=== PATIENT | male | born 1950 | race Caucasian/White ===

== ENCOUNTER → 2016-09-05 | Outpatient (CLI) | payer MEDICARE, MEDICAID | END | disposition home or self-care (01) | LOC: GMAJ 17:44 | PROVIDERS: ATTEND Family Medicine | DX: L03.119 Cellulitis of unspecified part of limb (principal); L03.129 Acute lymphangitis of unspecified part of limb ==

== ENCOUNTER → 2016-09-20 | Outpatient (CLI) | payer MEDICARE, MEDICAID | END | disposition home or self-care (01) | LOC: BFHH 11:10 | PROVIDERS: ATTEND Family Medicine | DX: E11.65 Type 2 diabetes mellitus with hyperglycemia (principal) ==

== ENCOUNTER → 2016-10-13 | Outpatient (CLI) | payer MEDICARE, MEDICAID | LOC: BFHH 09:55 | PROVIDERS: ATTEND Family Medicine | DX: E11.621 Type 2 diabetes mellitus with foot ulcer (principal) ==

== ENCOUNTER → 2016-12-04 | Outpatient (CLI) | payer MEDICARE, MEDICAID | END | disposition home or self-care (01) | LOC: BFHH 09:56 | PROVIDERS: ATTEND Family Medicine | DX: E11.65 Type 2 diabetes mellitus with hyperglycemia (principal); E11.42 Type 2 diabetes mellitus with diabetic polyneuropathy; I10 Essential (primary) hypertension; L03.115 Cellulitis of right lower limb ==

== ENCOUNTER → 2017-01-10 | Outpatient (CLI) | payer MEDICARE, MEDICAID | END | disposition home or self-care (01) | LOC: BFHH 14:55 | PROVIDERS: ATTEND Family Medicine | DX: E11.65 Type 2 diabetes mellitus with hyperglycemia (principal); E11.621 Type 2 diabetes mellitus with foot ulcer; E11.42 Type 2 diabetes mellitus with diabetic polyneuropathy ==

== ENCOUNTER 2017-01-12 12:50 | Inpatient (IN) | payer MEDICARE, MEDICAID ==
[2017-01-12] MEDS ORDERED: ONDANSETRON INJ 4 MG/2 ML VIAL IV ONE (13:34)
[2017-01-12] MEDS ORDERED: SODIUM CHLORIDE 0.9% 1000ML 1,000 ML IVS ONE (13:34)
--- NOTE | 2017-01-12 13:44 | ED.PDOC ---
History of Present Illness - General Chief Complaint: Fever Stated Complaint: fever, weaknes w/falls, emesis x1 Time Seen by Provider: 01/12/17 12:53 Source: patient, RN notes reviewed, Vital Signs reviewed, family - sister, EMS Exam Limitations: no limitations - History of Present Illness Initial Comments: Patient comes in with c/o weakness, nausea, vomiting and fever. He reports that he has been feeling weak for about a month but it is getting progressively worse. This morning his legs got really weak and he fell. He denies any injury from the fall. He was in [facility] ~1month ago with the same symptoms and a severe infection of his R foot. 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 He is still seeing wound care. Yesterday when he saw the wound care doctor he was restarted on antibiotics, patient does not know which one. Timing/Duration: constant - 1 month, getting worse Severity: moderate Improving Factors: nothing Worsening Factors: other - getting up and about Associated Symptoms: fever/chills, malaise, nausea/vomiting, weakness Allergies/Adverse Reactions: Allergies NO KNOWN ALLERGY Allergy (Verified 11/05/14 18:04) Home Medications: Ambulatory Orders Amlodipine Besylate [Norvasc] 5 mg PO DAILY 10/29/14 Atenolol [Tenormin] 100 mg PO BID 10/29/14 Atorvastatin Calcium [Lipitor] 80 mg PO BEDTIME 10/29/14 Insulin Aspart [Novolog Flexpen] 10 unit SC TID 10/29/14 Insulin Glargine [Lantus Solostar] 30 unit SC DAILY 10/29/14 Potassium Chloride [Micro-K] 10 meq PO BID 10/29/14 Pregabalin [Lyrica] 100 mg PO BID 10/29/14 Furosemide 40 mg PO BID 01/12/17 Losartan Potassium 100 mg PO DAILY 01/12/17 Review of Systems - Review of Systems Constitutional: States: chills, fever, malaise, weakness EENTM: States: no symptoms reported Respiratory: States: no symptoms reported Cardiology: States: no symptoms reported Gastrointestinal/Abdominal: States: nausea, vomiting. Denies: abdominal pain, constipation, diarrhea Genitourinary: States: frequency - due to being on Lasix Musculoskeletal: States: no symptoms reported Skin: States: no symptoms reported Neurological: Denies: headache, numbness, paresthesia, tingling, tremors, weakness Endocrine: States: no symptoms reported All other Systems: No Change from Baseline Past Medical History (General) - Patient Medical History Hx Seizures: No Hx Stroke: No Hx Asthma: No Hx of COPD: No Hx Cardiac Disorders: No Hx Congestive Heart Failure: No Hx Pacemaker: No Hx Hypertension: Yes Hx Diabetes: Yes Hx MRSA: No - Social History Hx Tobacco Use: No Hx Alcohol Use: No Hx Substance Use: No Hx Physical Abuse: No Hx Emotional Abuse: No Family Medical History - Family History Mother Name: Fanny Centeno Living Status: Age at (years of age): 65 Cause of : Cancer Hx Family Asthma: No Hx Family Congestive Heart Failure: No Hx Family Hypertension: Yes Hx Family Stroke: No Hx Cardiac Disease: No Hx Family Diabetes: No Hx Family Cancer: Yes Physical Exam - Physical Exam General Appearance: Alert, Ill Appearing, Well Developed, Well Groomed, Well Nourished Ears, Nose, Throat: other - dry mucous membranes Neck: supple, normal inspection Respiratory: chest non-tender, lungs clear, normal breath sounds, no respiratory distress, no accessory muscle use Cardiovascular/Chest: regular rate, rhythm, no edema, no gallop, no murmur Gastrointestinal/Abdominal: normal bowel sounds, non tender, soft Extremity: other - R foot: erythematous, warm and tender. Neurologic: no motor/sensory deficits, alert, normal mood/affect, oriented x 3, other - Unsteady on his feet Skin Exam: normal color, warm/dry Comments: Vital Signs 01/12/17 12:50 Temperature 102.3 F H Pulse Rate [ 94 H left brachial] Respiratory 16 Rate O2 Sat by Pulse 92 L Oximetry Progress - Progress Progress: 01/12/17 14:[address] Rojo. Will admit for IV antibiotics. - Results/Orders Results/Orders: Laboratory Tests 01/12/17 01/12/17 13:40 13:40 WBC 5.9 RBC 4.12 L Hgb 12.2 L Hct 35.8 L MCV 87.1 MCH 29.6 MCHC 33.9 RDW 14.7 H Plt Count 234 MPV 7.6 Absolute Neuts (auto) 4.00 Absolute Lymphs (auto) 1.30 Absolute Monos (auto) 0.40 Absolute Eos (auto) 0.00 Absolute Basos (auto) 0.10 Neutrophils % 68.8 Lymphocytes % 22.6 Monocytes % 7.5 Eosinophils % 0.2 L Basophils % 0.9 Sodium 139 Potassium 4.2 Chloride 100 L Carbon Dioxide 29 Anion Gap 14.2 BUN 18 Creatinine 1.33 H BUN/Creatinine Ratio 13.5 Random Glucose 314 H Serum Osmolality 291.4 Calcium 8.5 Total Bilirubin 0.5 AST 22 ALT 25 Alkaline Phosphatase 67 Serum Total Protein 7.5 Albumin 3.2 Globulin 4.3 H Albumin/Globulin Ratio 0.7 L - EKG/XRAY/CT XRAY: chest - cardiomegaly, no infiltrate Departure - Departure Clinical Impression: Cellulitis of foot, right Fever Qualifiers: Fever type: other Qualified Code(s): R50.81 - Fever presenting with conditions classified elsewhere Disposition: Admit Patient Condition: Fair Home Medications: Ambulatory Orders Amlodipine Besylate [Norvasc] 5 mg PO DAILY 10/29/14 Atenolol [Tenormin] 100 mg PO BID 10/29/14 Atorvastatin Calcium [Lipitor] 80 mg PO BEDTIME 10/29/14 Insulin Aspart [Novolog Flexpen] 10 unit SC TID 10/29/14 Insulin Glargine [Lantus Solostar] 30 unit SC DAILY 10/29/14 Potassium Chloride [Micro-K] 10 meq PO BID 10/29/14 Pregabalin [Lyrica] 100 mg PO BID 10/29/14 Furosemide 40 mg PO BID 01/12/17 Losartan Potassium 100 mg PO DAILY 01/12/17 Decision To Admit - Decistion To Admit Decision to Admit Reason: Admit from ER Decision to Admit Date: 01/12/17 Decision to Admit Time: 14:35
[2017-01-12] MEDS ORDERED: ACETAMINOPHEN 500 MG TAB PO ONE (13:48)
--- NOTE | 2017-01-12 14:57 | RAD ---
EXAM DESCRIPTION: Chest,2 Views CLINICAL HISTORY: Fever/hypoxia COMPARISON: February 18, 2015 TECHNIQUE: PA/lateral Findings/impression: Cardiac silhouette shows cardiomegaly with mild central pulmonary vascular congestion. Calcific atherosclerosis noted of the aortic arch. Lungs are clear without focal consolidative infiltrates. No significant pleural effusion. No pneumothorax. Multilevel degenerative disc disease and marginal osteophytes of the thoracic spine. Electronically signed by: Phillip Bruce MD 01/12/2017 2:55 PM CDT
--- NOTE | 2017-01-12 15:28 | HP ---
HISTORY OF PRESENT ILLNESS: This 67 year-old white male is admitted to the hospital via the Emergency Room after being brought from home. He approximately got up early this morning and fell on 2 different occasions and could not get up. He finally was able to get close enough to support himself on a chair when some family members started to come over for coffee and found him. He was very sore from his attempts to get up from the floor. He lives at home alone. In the Emergency Room, he was very weak with associated nausea and vomiting. He has not eaten anything all day and did not take his insulin or other medicines today as well. His temperature was 103.2 at one time. He states that he has been falling because of disequilibrium problems and associated weakness. He has had a history of right third toe amputation and now presents with a swollen right foot with a fairly deep ulceration on the ball of the foot with tracking deep into the foot noted on culture swab. He has been followed closely in the [facility] by Dr. Batres. In the Emergency Room, he was noted to have oxygen desaturation while sleeping into the mid 80s. He apparently was in [facility] about 6 weeks ago because of the ulceration on his foot with associated infectious presentation. He is admitted to the hospital now to continue the evaluation of a possible source of the fever as well as to give some IV hydration, control the diabetes and work to prevent further worsening which would also include the development of diabetic ketoacidosis. Special attention to his frequent falls. PAST MEDICAL HISTORY: 1. Hypertension. 2. Diabetes mellitus on insulin for the last 15 years. PAST SURGICAL HISTORY: 1. Foot ulceration surgeries in the past. CURRENT MEDICATIONS: Please refer to medicines list that the nurses have verified being taken as his home medication. He also takes Lantus insulin 50 units every morning and he takes NovoLog around 20 units before each meal. Today, he has not taken either, nor has he eaten or drank much. ALLERGIES: NONE KNOWN. FAMILY HISTORY: Positive for diabetes, cancer and coronary artery disease. 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 He has never smoked. REVIEW OF SYSTEMS: His weight seems to be going up and he has had some low- grade fever and chills noted recently. HEENT: No hearing or vision disturbances. LUNGS: Occasional cough but no significant hemoptysis or shortness of breath, but he does get tired easily. CARDIOVASCULAR: No significant chest pains or palpitations. ABDOMEN: Some nausea and vomiting today with a loss of appetite. GENITOURINARY: No dysuria or burning on urination. EXTREMITIES: Right foot swollen with drainage, especially from the ulceration on the ball of his right foot. NEUROLOGIC: The patient is quite weak having difficulty getting up and getting around successfully. Will have Physical Therapy assist in evaluating the safety of his getting up. PHYSICAL EXAMINATION: VITAL SIGNS: Temperature was 102.3 when he came into the Emergency Room and is down to 99.6 subsequently. Pulse 75, blood pressure 109/65, respirations 20, pulse oximetry 95% on 1 liter. Weight 115.9 kilos. GENERAL: The patient is fairly alert and communicative. He is very weak and complains of difficulty ambulating, and history of recent falls. HEENT: Unremarkable. NECK: Supple. CHEST: Lungs have diminished breath sounds with no significant wheezing. CARDIOVASCULAR: Heart tones are fairly regular with a grade 2/6 systolic murmur over the base of the heart. No gallops noted. ABDOMEN: Obese, soft. Some increased percussion upon tympani exam. EXTREMITIES: Right foot is swollen with some erythema especially at the base of some of the toes. He has lost his third toe and a good portion of his second and big toe by amputations. The ulceration on the bottom of his foot in the region of the ball of the foot does have a fairly deep connection into the foot itself, but otherwise is fairly clean and is showing some granulation tissue formation slowly forming. NEUROLOGIC: The patient is quite weak. We did not get him up to walk him until we are able to get him a little more stable with some more IV hydration and improved diabetic and nutritional status. Reevaluate in the morning. LABORATORY: White count of 5,900, hemoglobin 12.2, platelets 234, neutrophils 69%. Chemistry shows sodium 139, potassium 4.2, CO2 of 29, BUN 18, creatinine 1.33, glucose 314 down to 291, calcium 8.5. Liver enzymes normal. C reactive protein pending. Albumin 3.2. Urinalysis showed proteinuria, glycosuria and some hematuria with 1+ bacteriuria, culture pending. Blood cultures, urine culture and wound culture pending. Chest x-ray does show an enlarged heart with mild central pulmonary vascular congestion. ASSESSMENT: 1. Acute febrile illness of undetermined etiology possibly from the foot itself versus atelectasis versus a viral illness. 2. Dehydration requiring IV supplementation. 3. Diabetes mellitus type 1 insulin dependent, poorly controlled having skipped his insulin today as well as his nutritional intake. 4. Transient hypoxia noted while asleep. 5. Right foot infected with deep ulceration on the ball of the foot being managed at the [facility] possibly contributing to the febrile state with ongoing treatment and support, and cultures pending. 6. Falls with the patient living at home alone which could be quite serious. PLAN: Continue with gentle fluid hydration, especially with his history of an enlarged heart, possibly early congestive heart failure. Await BNP. Will get adequate cultures and the consider a short course of fluoroquinolone parenterally. Await Flu A and B. Use local diluted Hibiclens to cleanse the right foot. Concentrate on proper nutrition with a select diet with the patient being edentulous at this time. Will decrease some of the Atenolol because of his blood pressure not being very high at this point and continue to observe closely. Reevaluate in the morning and continue with diabetes management and further followup regarding the ongoing fever. #[id number] MTDD
[2017-01-12] MEDS ORDERED: HYDROcodone 5MG/APAP 325MG 1 EA TAB PO PRN (19:37)
[2017-01-12] MEDS ORDERED: GLUCAGON INJ 1 MG VIAL SUBCU PRN (19:37)
[2017-01-12] MEDS ORDERED: DEXTROSE 50% 25 GM/50 ML SYG IV PRN (19:37)
[2017-01-12] MEDS ORDERED: ALUM & MAG HYDROX-SIMETHICONE 30 ML UD PO PRN (19:37)
[2017-01-12] MEDS ORDERED: SODIUM CHLORIDE 0.9% (FLUSH) 10 ML SYG IV PRN (19:37)
[2017-01-12] MEDS ORDERED: MAGNESIUM HYDROXIDE 30 ML UD PO PRN (19:37)
[2017-01-12] MEDS ORDERED: ONDANSETRON INJ 4 MG/2 ML VIAL IV PRN (19:37)
[2017-01-12] MEDS ORDERED: KCL 20 MEQ/NS 1,000 ML IVS PRN (19:47)
[2017-01-12] MEDS ORDERED: CHLORHEXIDINE GLUCONATE 4 % 15 ML UD TOP ONE (19:49)
--- NOTE | 2017-01-12 20:03 | PCM.CORE ---
Physician DVT/VTE - Nurse DVT Assessment & Total Each Risk Factor Represents 3 Points: Medical PT with Hx of AK, CHF, Severe infection/sepsis Each Risk Factor Represents 2 Points: Age 60-74 Each Risk Factor is 1 Point: Varicose Veins/Edema Legs, Obesity (BMI >25) DVT Assessment Score: 7 - 5 or more Very High Risk Treatments: Sequential Compression Device Pharmacological: Enoxaparin 40mg SQ Daily
[2017-01-12] MEDS ORDERED: levoFLOXacin 500MG IV 100 ML IVPB ONE (20:19)
[2017-01-12] MEDS: levoFLOXacin 500MG IV 500 MG in PREMIX BAG 1 BAG IVPB SCH (20:25)
[2017-01-12] MEDS: IV SET AND CAP CHANGE INJ INJ SCH (20:26)
[2017-01-12] MEDS ORDERED: ENOXAPARIN SODIUM 40 MG/0.4 ML SYG SUBCU SCH (20:30)
[2017-01-12] MEDS: LEVALBUTEROL NEBS 0.63 MG/3 ML VIAL INH SCH (20:40)
[2017-01-12] MEDS ORDERED: POTASSIUM CHLORIDE 10 MEQ TAB PO ONE (20:47)
[2017-01-12] MEDS ORDERED: PREGABALIN 100 MG CAP ONE (20:47)
[2017-01-12] MEDS: FUROSEMIDE 40 MG TAB PO SCH (20:54)
[2017-01-12] MEDS: ATENOLOL 25 MG TAB PO SCH (20:55)
[2017-01-12] MEDS: INSULIN LISPRO 100 UNITS/ML PEN SUBCU SCH (20:55)
[2017-01-12] MEDS ORDERED: PREGABALIN 100 MG PO SCH (21:00)
[2017-01-12] MEDS ORDERED: NON-FORMULARY MEDICATION 1 EA MIS (Potassium Chloride [Micro-K] 10 MEQ) PO SCH (21:00)
[2017-01-12] MEDS ORDERED: INSULIN DETEMIR 100 UNITS/ML PEN SUBCU ONE (23:12)
[2017-01-13] MEDS: ACETAMINOPHEN 325 MG TAB PO PRN ×2 (01:50→16:45)
[2017-01-13] MEDS: OMEPRAZOLE CAP 20 MG CAP PO SCH (05:30)
[2017-01-13] MEDS: INSULIN LISPRO 100 UNITS/ML PEN SUBCU SCH ×4 (07:48→21:45)
[2017-01-13] MEDS ORDERED: LEVALBUTEROL NEBS 0.63 MG/3 ML VIAL NEB ONE (08:16)
[2017-01-13] MEDS: LEVALBUTEROL NEBS 0.63 MG/3 ML VIAL INH SCH (08:24)
[2017-01-13] MEDS: ATENOLOL 25 MG TAB PO SCH ×2 (08:53→20:09)
[2017-01-13] MEDS: FUROSEMIDE 40 MG TAB PO SCH ×2 (08:53→20:09)
[2017-01-13] MEDS: LOSARTAN POTASSIUM 100 MG TAB PO SCH (08:53)
[2017-01-13] MEDS: PREGABALIN 100 MG CAP PO SCH ×2 (08:53→20:09)
[2017-01-13] MEDS: CHLORHEXIDINE GLUCONATE 4 % 15 ML UD TOP SCH ×2 (08:54→20:08)
[2017-01-13] MEDS: amLODIPine BESYLATE 5 MG TAB PO SCH (08:56)
[2017-01-13] MEDS ORDERED: INSULIN DETEMIR 100 UNITS/ML PEN SUBCU ONE ×2 (09:33→21:34)
--- NOTE | 2017-01-13 10:23 | PN ---
SUPERVISING PHYSICIAN: Haim Campos MD DATE: 01/13/17 SUBJECTIVE: The patient is lying in bed. He complains of his left leg hurting more than his right leg. He says he does not have any problems with the leg with the wound on it. He also complains of general fatigue and tiredness. He denies any chest pain, shortness of breath, nausea or vomiting or diarrhea. He did say he had had some problems with constipation but he had had a good bowel movement this morning. OBJECTIVE: VITAL SIGNS: T-max 24 hours is 100.4, pulse rate 87, blood pressure 137/74. Respiratory rate 19, 02 saturation 91% on nasal cannula. LUNGS: Clear to auscultation bilaterally. CARDIAC: Regular rate and rhythm. ABDOMEN: Rounded it is soft, bowel sounds are positive. EXTREMITIES: No cyanosis, clubbing, or edema. He does have a dressing to the right lower foot that is dry and intact. Bilateral pedal pulses are palpable at +1. NEUROLOGIC: He is awake, alert, and oriented x3. LABORATORY: Sodium 137, potassium 4, chloride 103, carbon dioxide 25, BUN 15, creatinine 1.33, calcium 8.1, BNP 198. Albumin 3, globulin 4.3. Hemoglobin A1C is 10.9. Hemoglobin 10.8, hematocrit of 36.5. Influenza A and B per PCR is negative. Cultures - wound, urine and blood are pending. All other labs and films have been reviewed via the EMR. ASSESSMENT: 1. Acute febrile illness of undetermined etiology most likely from cellulitis of the right foot. Also consider atelectasis versus a viral illness. 2. Dehydration requiring IV supplementation, improved. 3. Diabetes mellitus type 2 insulin dependent, poorly controlled with poor medical compliance with hemoglobin A1C of 10.9. 4. Transient hypoxia noted while asleep. 5. Infected right foot with a deep ulceration on the ball of the foot being managed by [facility]. 6. Frequent falls with the patient living at home alone. PLAN: We will continue present supportive care. I have discontinued his IV fluids as he is taking p.o. very well at this point. Will continue to monitor his cultures as they become available and continue his Levaquin for now. He generally takes Levemir 50 in the morning and depending on what he eats, he takes 50 of Levemir in the evening as well as NovoLog scheduled before meals. I have done extensive education that long-acting insulin is not to be taken as needed. I will initiate 30 of Levemir this morning. We will continue to check his blood sugars throughout the day and they will call me for his bedtime blood sugar to determine his Levemir dosing tonight. Hopefully, we can get him on a scheduled dose in the next day or so. He will continue on his sliding scale coverage for now. His Atenolol was decreased yesterday and for now, his blood pressures have been fairly stable but he may need to increase to his normal dosage at some point. I have ordered AM labs and will continue to monitor closely and follow as needed. Dr. Campos is the collaborating physician and available for consultation. #[id number] MTDD
[2017-01-13] MEDS: LEVALBUTEROL NEBS 0.63 MG/3 ML VIAL NEB SCH ×2 (14:28→20:18)
[2017-01-13] MEDS: POTASSIUM CHLORIDE 10 MEQ TAB PO SCH (16:45)
[2017-01-13] MEDS ORDERED: levoFLOXacin 500MG IV 100 ML IVPB ONE (20:01)
[2017-01-13] MEDS: levoFLOXacin 500MG IV 500 MG in PREMIX BAG 1 BAG IVPB SCH (20:04)
[2017-01-13] MEDS: SODIUM CHLORIDE 0.9% (FLUSH) 10 ML SYG IV SCH (20:09)
[2017-01-13] MEDS: ENOXAPARIN SODIUM 40 MG/0.4 ML SYG SUBCU SCH (20:09)
[2017-01-14] MEDS: OMEPRAZOLE CAP 20 MG CAP PO SCH (05:47)
[2017-01-14] MEDS: ACETAMINOPHEN 325 MG TAB PO PRN (05:47)
[2017-01-14] MEDS: INSULIN LISPRO 100 UNITS/ML PEN SUBCU SCH ×4 (07:21→21:39)
[2017-01-14] MEDS: PREGABALIN 100 MG CAP PO SCH ×2 (08:13→21:38)
[2017-01-14] MEDS: FUROSEMIDE 40 MG TAB PO SCH ×2 (08:13→21:37)
[2017-01-14] MEDS: POTASSIUM CHLORIDE 10 MEQ TAB PO SCH ×2 (08:13→17:05)
[2017-01-14] MEDS: LOSARTAN POTASSIUM 100 MG TAB PO SCH (08:13)
[2017-01-14] MEDS: ATENOLOL 25 MG TAB PO SCH ×2 (08:13→21:37)
[2017-01-14] MEDS: amLODIPine BESYLATE 5 MG TAB PO SCH (08:13)
[2017-01-14] MEDS: LEVALBUTEROL NEBS 0.63 MG/3 ML VIAL NEB SCH ×3 (08:16→20:25)
[2017-01-14] MEDS: SODIUM CHLORIDE 0.9% (FLUSH) 10 ML SYG IV SCH ×2 (08:30→21:40)
[2017-01-14] MEDS: CHLORHEXIDINE GLUCONATE 4 % 15 ML UD TOP SCH ×2 (09:15→21:37)
[2017-01-14] MEDS ORDERED: MAGNESIUM SULFATE PREMIX 2GM 2 GM in PREMIX BAG 1 BAG IVPB ONE (09:48)
--- NOTE | 2017-01-14 11:42 | PN ---
DATE: 01/14/17 SUPERVISING PHYSICIAN: Haim Campos M.D. SUBJECTIVE: The patient is sitting up in his chair in his room. He has no complaints of shortness of breath, chest pain, abdominal pain, nausea or vomiting. He does say that he continues to have some mild pain in his right foot, but it is fairly well controlled with his pain medications. OBJECTIVE: VITAL SIGNS: T max 24 hours was 101.6, it is now 98.2. Pulse rate 82, blood pressure 143/73, respiratory rate 18, O2 sat is 93%. RESPIRATORY: Clear to auscultation bilaterally. CARDIAC: Regular rate and rhythm. ABDOMEN: Soft, nondistended, non-tender. Bowel sounds are positive. EXTREMITIES: There is a dressing to his right foot that is dry and intact. Bilateral pedal pulses are +1. There is no edema. NEUROLOGIC: He is awake, alert and oriented times three. LABORATORY: His white count is 4.6, hemoglobin and hematocrit are down to 9.9 and 29.5. Blood sugars have been running between 143 to 308. Sodium 137, potassium 3.7, chloride 100, BUN 13, creatinine 1.12, calcium 8.1, magnesium 1.5. Preliminary wound culture shows gram-negative rods and gram positive cocci with further incubation required. Preliminary blood cultures show no growth. Urine culture shows no growth after 48 hours. All other labs and films have been reviewed via the EMR. ASSESSMENT: 1. Acute febrile illness of undetermined etiology but most likely from cellulitis of the right foot. His wound cultures are showing gram positive cocci and gram- negative rods, still awaiting sensitivities. 2. Hypomagnesemia. 3. Dehydration requiring IV supplementation that has improved. 4. Diabetes mellitus type 2 insulin dependent, poorly controlled with poor medical compliance and hemoglobin A1c of 10.9. 5. Transient hypoxia noted while asleep. 6. Infected right foot with a deep ulceration on the ball of the foot being managed by [facility]. 7. Frequent falls at home. PLAN: We will continue present supportive care. I have given him 2 grams of magnesium this morning and will repeat his magnesium along with his labs in the morning. I am awaiting his wound cultures to make sure he is on the appropriate antibiotics. Right now he is on Levaquin. I will call the [facility] tomorrow in [place] to get him a close followup on discharge and to apprise them of his wound cultures as well as his hospitalization. I have also started him routinely on 35 units of Levemir at night and hopefully that will cover his blood sugars as they have been coming down quite nicely. We will continue to monitor the patient closely and treat as appropriate. Dr. Campos is the collaborating physician and available for consultation. #[id number] MTDD
[2017-01-14] MEDS ORDERED: MAGNESIUM SULFATE PREMIX 2GM 50 ML IVPB ONE (12:10)
[2017-01-14] MEDS ORDERED: levoFLOXacin 500MG IV 100 ML IVPB ONE (20:11)
[2017-01-14] MEDS: levoFLOXacin 500MG IV 500 MG in PREMIX BAG 1 BAG IVPB SCH (20:18)
[2017-01-14] MEDS ORDERED: INSULIN DETEMIR 100 UNITS/ML PEN SUBCU SCH (21:00)
[2017-01-14] MEDS: ENOXAPARIN SODIUM 40 MG/0.4 ML SYG SUBCU SCH (21:38)
[2017-01-15] MEDS: OMEPRAZOLE CAP 20 MG CAP PO SCH (05:52)
[2017-01-15] MEDS ORDERED: BIFIDOBACTERIUM INFANTIS 4 MG CAP ONE (07:41)
[2017-01-15] MEDS: INSULIN LISPRO 100 UNITS/ML PEN SUBCU SCH ×4 (07:50→21:11)
[2017-01-15] MEDS: POTASSIUM CHLORIDE 10 MEQ TAB PO SCH ×2 (07:59→16:32)
[2017-01-15] MEDS: LOSARTAN POTASSIUM 100 MG TAB PO SCH (08:00)
[2017-01-15] MEDS: BIFIDOBACTERIUM INFANTIS 4 MG CAP PO SCH (08:00)
[2017-01-15] MEDS: PREGABALIN 100 MG CAP PO SCH ×2 (08:00→20:18)
[2017-01-15] MEDS: amLODIPine BESYLATE 5 MG TAB PO SCH (08:00)
[2017-01-15] MEDS: ATENOLOL 25 MG TAB PO SCH ×2 (08:00→20:18)
[2017-01-15] MEDS: LEVALBUTEROL NEBS 0.63 MG/3 ML VIAL NEB SCH ×3 (08:27→21:19)
[2017-01-15] MEDS: SODIUM CHLORIDE 0.9% (FLUSH) 10 ML SYG IV SCH ×2 (08:30→20:18)
[2017-01-15] MEDS: CHLORHEXIDINE GLUCONATE 4 % 15 ML UD TOP SCH ×2 (09:00→20:18)
[2017-01-15] MEDS: FUROSEMIDE 40 MG TAB PO SCH ×2 (09:00→20:18)
[2017-01-15] MEDS ORDERED: CEFEPIME 2 GM VIAL IVPB ONE ×2 (11:30→20:10)
[2017-01-15] MEDS ORDERED: SODIUM CHL 0.9% 100ML MINI-BAG 100 ML IVPB ONE (11:36)
[2017-01-15] MEDS: CEFEPIME 2 GM in SODIUM CHL 0.9% 50ML MIN-BAG+ 50 ML IVPB SCH ×2 (11:45→21:41)
[2017-01-15] MEDS ORDERED: INSULIN DETEMIR 100 UNITS/ML PEN SUBCU SCH (12:58)
--- NOTE | 2017-01-15 14:18 | PN ---
SUPERVISING PHYSICIAN: Haim Campos MD DATE: 01/15/17 SUBJECTIVE: The patient is sitting up in his hospital bed. He is somewhat tearful, but he is frustrated with his wound healing progress and all the problems they have created over the last several weeks. Otherwise, he denies chest pain, shortness of breath, nausea, vomiting, or diarrhea. OBJECTIVE: VITAL SIGNS: Afebrile. Heart rate 74. Blood pressure 150/78. Respiratory rate 21. O2 saturation 92%. LUNGS: Clear to auscultation bilaterally. CARDIAC: Regular rate and rhythm. ABDOMEN: Soft, nontender, nondistended. Bowel sounds are positive. EXTREMITIES: No cyanosis, clubbing or edema. He has a dressing to the right lower foot that is dry and intact. Pedal pulses are palpable bilaterally at +1 , slightly swollen, but no erythema noted. NEUROLOGIC: Awake, alert and oriented times three. LABORATORY: White count 4.6. Hemoglobin and hematocrit are stable at 10.8 and 31.8. Blood sugars have run from 202 to 297. Chloride 99. Cultures shows Pseudomonas aeruginosa sensitive to Levaquin and cefepime. All other labs and films have been reviewed via the EMR. ASSESSMENT: 1. Acute febrile illness, most likely from cellulitis of the right foot. His wound cultures are showing Pseudomonas aeruginosa, presently on Levaquin and cefepime. 2. Hypomagnesemia, improved. 3. Dehydration, improved. 4. Diabetes mellitus, type 2, poorly controlled with poor medical compliance and hemoglobin A1c of 10.9. 5. Transient hypoxia noted while asleep. 6. Infected right foot with a deep ulceration on the ball of the foot, being managed by [facility]. 7. Frequent falls at home. PLAN: We will continue present supportive care. Earlier today before I had the sensitivities back, I had added cefepime based on the preliminary cultures. I just received the sensitivities and it shows that it is sensitive to both Levaquin and cefepime. I will give him both today and plan for discharge tomorrow. I spoke with the wound care clinic in [place]. He has an appointment with Dr. Manning on 01/29/17. He had been given Bactrim in clinic and his culture shows resistance to that. I will fax the culture and sensitivities to Dr. Manning's office in [place]. Dr. Manning will be unable to see him earlier due to being out of town, but he can be discharged on some po Levaquin. I am also going to increase his long-acting insulin and see if we can get a little bit better control of his blood sugars. Otherwise, we will continue to follow him closely and treat as needed. Dr. Campos is the collaborating physician and available for consultation. #[id number] [facility]
[2017-01-15] MEDS ORDERED: levoFLOXacin 500MG IV 100 ML IVPB ONE (20:07)
[2017-01-15] MEDS ORDERED: SODIUM CHL 0.9% 50ML MIN-BAG+ 50 ML IVPB ONE (20:09)
[2017-01-15] MEDS: levoFLOXacin 500MG IV 500 MG in PREMIX BAG 1 BAG IVPB SCH (20:16)
[2017-01-15] MEDS: ENOXAPARIN SODIUM 40 MG/0.4 ML SYG SUBCU SCH (20:17)
[2017-01-15] MEDS: IV SET AND CAP CHANGE INJ INJ SCH (20:19)
[2017-01-15] MEDS: ACETAMINOPHEN 325 MG TAB PO PRN ×2 (21:13→21:22)
[2017-01-16] MEDS: OMEPRAZOLE CAP 20 MG CAP PO SCH (06:40)
[2017-01-16] MEDS ORDERED: SODIUM CHL 0.9% 50ML MIN-BAG+ 50 ML IVPB ONE (07:24)
[2017-01-16] MEDS ORDERED: CEFEPIME 2 GM VIAL IVPB ONE (07:25)
[2017-01-16] MEDS: INSULIN LISPRO 100 UNITS/ML PEN SUBCU SCH ×2 (07:33→12:21)
[2017-01-16] MEDS: POTASSIUM CHLORIDE 10 MEQ TAB PO SCH (07:34)
[2017-01-16] MEDS: LEVALBUTEROL NEBS 0.63 MG/3 ML VIAL NEB SCH (08:24)
[2017-01-16 08:28] VITALS: O2SAT 94
[2017-01-16] MEDS: LOSARTAN POTASSIUM 100 MG TAB PO SCH (09:15)
[2017-01-16] MEDS: CEFEPIME 2 GM in SODIUM CHL 0.9% 50ML MIN-BAG+ 50 ML IVPB SCH (09:15)
[2017-01-16] MEDS: BIFIDOBACTERIUM INFANTIS 4 MG CAP PO SCH (09:15)
[2017-01-16] MEDS: ATENOLOL 25 MG TAB PO SCH (09:15)
[2017-01-16] MEDS: amLODIPine BESYLATE 5 MG TAB PO SCH (09:16)
[2017-01-16] MEDS: PREGABALIN 100 MG CAP PO SCH (09:16)
[2017-01-16] MEDS: SODIUM CHLORIDE 0.9% (FLUSH) 10 ML SYG IV SCH (09:16)
[2017-01-16] MEDS: FUROSEMIDE 40 MG TAB PO SCH (09:16)
[2017-01-16 10:31] VITALS: BP 158/73; TEMP 98.9
[2017-01-16] MEDS: CHLORHEXIDINE GLUCONATE 4 % 15 ML UD TOP SCH (11:05)
--- NOTE | 2017-01-16 14:58 | DS ---
DISCHARGE DIAGNOSIS: 1. Acute febrile illness, believed due to cellulitis on his right foot. 2. Cellulitis, right foot with deep ulceration on the ball of the foot, being managed by [facility] with followup at that clinic on 01/29/17 already scheduled. 3. Hypomagnesemia, resolved. 4. Dehydration, resolved. 5. Diabetes mellitus, type 2, poor control with hemoglobin A1c of 10.9. 6. Transient hypoxia, may benefit from outpatient sleep study. 7. Frequent falls at home. HISTORY OF PRESENT ILLNESS: This 67-year-old gentleman was admitted to the hospital from the Emergency Room after being brought from home. On the day of admission, he had gotten up and then had fallen and was unable to get back up. He does live at home alone. He has family that check on him. They found him and brought him into the Emergency Room. He had some associated nausea and vomiting on admission. He had not eaten anything in several days and had a temperature of 103.2 at home. He was noted to have a chronic infection in his right foot that had been followed by the wound care clinic. He has a history of a right third toe amputation. He is being followed by Dr. Batres in [place]. HOSPITAL COURSE: The patient was admitted to the hospital and started on IV antibiotics with cefepime. Cultures were obtained and cultures from the wound grew out Pseudomonas aeruginosa. It was sensitive to oral Levaquin. He had been on cefepime in the hospital. It was sensitive to this as well. The patient has been afebrile at the time of discharge for several days. He needs better control of his blood sugars. We have significant discussions with him about that. He does have a followup at the wound care clinic on 01/29/17. He will be discharged home at this time to continue oral Levaquin 500 mg daily for 7 more days. Home health will be consulted to continue wound care and physical therapy. He will resume his other medications. He needs better control of his sugars. We will leave that to his primary care physician. At this time, he will be discharged home to resume his Lantus which he is now saying he takes 50 units per day. We will encourage him to take that at 50 units per day and to keep track of his blood sugars and bring that documentation into his primary care physician for adjustment as needed. He does also take NovoLog 20 units before meals. The patient's sugars while he has been in the hospital have been in the mid 200s on 45 units of Levemir daily, so I will ask him at home to go ahead and go up to 60 units of Lantus daily. #[id number] MTDD
== END 2017-01-16 12:44 | disposition home health service (06) | DRG 603 ==
LOC: ER 12:50 → MS 15:27 → OBSVTOIN 15:27
PROVIDERS: ADMIT Emergency Medicine; ATTEND Family Medicine
DX: L03.115 Cellulitis of right lower limb (principal); L97.929 Non-pressure chronic ulcer of unspecified part of left lower leg with unspecified severity; E11.65 Type 2 diabetes mellitus with hyperglycemia; E83.42 Hypomagnesemia; E86.0 Dehydration; R09.02 Hypoxemia; I10 Essential (primary) hypertension; R29.6 Repeated falls; E11.621 Type 2 diabetes mellitus with foot ulcer; B96.5 Pseudomonas (aeruginosa) (mallei) (pseudomallei) as the cause of diseases classified elsewhere; Z60.2 Problems related to living alone; Z89.421 Acquired absence of other right toe(s); Z79.4 Long term (current) use of insulin; Z79.899 Other long term (current) drug therapy

== ENCOUNTER → 2017-01-24 | Outpatient (CLI) | payer MEDICARE, OTHER ==
--- NOTE | 2017-01-25 13:34 | US ---
EXAM DESCRIPTION: Venous,Lower Extremity RT CLINICAL HISTORY: LOWER LIMB EDEMA COMPARISON: None Available. TECHNIQUE: Two -dimensional and doppler sonographic evaluation of the deep venous system of the right lower extremity. FINDINGS: Doppler evaluation shows normal color flow and normal phasicity and augmentation of the right common femoral vein, femoral vein, popliteal vein, greater saphenous vein, peroneal, and posterior tibial vein. The right lower extremity deep veins showed normal occlusion with transducer pressure. Two-dimensional survey showed no echogenic thrombus within these veins. IMPRESSION: 1. Duplex ultrasound evaluation of the right lower extremity deep venous system showing no evidence of thrombosis or embolism. Electronically signed by: Gage Brito MD 01/25/2017 1:33 PM CDT Workstation: [id number]
== END | disposition home or self-care (01) ==
LOC: US 15:46
PROVIDERS: ATTEND Family Medicine
DX: R60.0 Localized edema (principal)

== ENCOUNTER → 2017-05-22 | Outpatient (CLI) | payer MEDICARE, MEDICAID | END | disposition home or self-care (01) | LOC: BFHH 09:59 | PROVIDERS: ATTEND Family Medicine | DX: E11.51 Type 2 diabetes mellitus with diabetic peripheral angiopathy without gangrene (principal); Z12.5 Encounter for screening for malignant neoplasm of prostate; I10 Essential (primary) hypertension ==

== ENCOUNTER → 2017-09-08 | Outpatient (CLI) | payer MEDICARE, OTHER | LOC: BFHH 10:14 | PROVIDERS: ATTEND Family Medicine | DX: E11.51 Type 2 diabetes mellitus with diabetic peripheral angiopathy without gangrene (principal); E78.5 Hyperlipidemia, unspecified; I10 Essential (primary) hypertension; Z79.84 Long term (current) use of oral hypoglycemic drugs ==

== ENCOUNTER → 2017-09-28 | Outpatient (CLI) | payer MEDICARE, OTHER ==
--- NOTE | 2017-09-28 14:38 | US ---
EXAM DESCRIPTION: Carotid Duplex CLINICAL HISTORY: CAROTID ARTERY STENOSIS COMPARISON: None Available. TECHNIQUE: Carotid Doppler ultrasound FINDINGS: Right Submitted images show tortuosity of the right CCA with intimal thickening. Calcified plaque is seen in the right carotid bulb and in the proximal right ICA. There is calcified plaque at the origin of the right is. Submitted images show 21% area stenosis of the right carotid bulb and 24% area narrowing of the right ICA origin. The following flow velocities were obtained: Common carotid artery peak systolic flow velocity measures 61 cm/s. Internal carotid artery peak systolic flow velocity measures 88 cm/s. The right internal carotid to common carotid peak systolic flow velocity ratio of 1.2 is normal. External carotid artery peak systolic flow velocity measures 108 cm/s. Flow in the right vertebral artery is antegrade. Left Submitted images show mild intimal thickening of the left common carotid artery without significant stenosis. Mild calcified plaque is seen in the upper left carotid bulb and proximal left external and internal carotid arteries. Transverse images through the left carotid bulb show 28% area stenosis related to the presence of calcified plaque. The left ICA just above the bulb shows 38% area stenosis caused by arteriosclerotic plaque. The following flow velocities were obtained: Common carotid artery peak systolic flow velocity measures 94 cm/s. Internal carotid artery peak systolic flow velocity measures 89 cm/s. The left internal carotid to common carotid peak systolic flow velocity ratio 0.90 is within normal limits. External carotid artery peak systolic flow velocity measures 89 cm/s. Flow in the left vertebral artery is antegrade. IMPRESSION: No hemodynamically significant stenosis. Electronically signed by: Cash Marquez MD 09/28/2017 2:37 PM CDT
== END ==
LOC: US 10:30
PROVIDERS: ATTEND Family Medicine
DX: I65.22 Occlusion and stenosis of left carotid artery (principal)

== ENCOUNTER → 2018-04-04 | Outpatient (CLI) | payer MEDICARE, MEDICAID | LOC: BFHH 13:26 | PROVIDERS: ATTEND Internal Medicine Infectious Disease | DX: E11.65 Type 2 diabetes mellitus with hyperglycemia (principal); I10 Essential (primary) hypertension; L03.119 Cellulitis of unspecified part of limb ==

== ENCOUNTER → 2018-04-17 | Outpatient (CLI) | payer MEDICARE, MEDICAID | LOC: BFHH 09:08 | PROVIDERS: ATTEND Family Medicine | DX: E11.65 Type 2 diabetes mellitus with hyperglycemia (principal); I10 Essential (primary) hypertension; E78.5 Hyperlipidemia, unspecified; L03.116 Cellulitis of left lower limb ==

== ENCOUNTER 2018-08-16 08:00 | Outpatient (CLI) | payer MEDICARE, MEDICAID ==
[~2018-08-16 08:00] MED LIST: CEFEPIME 2 GM in SODIUM CHL 0.9% 50ML MIN-BAG+ 50 ML IVPB ONE
[2018-08-16] MEDS: CEFEPIME 2 GM in SODIUM CHL 0.9% 50ML MIN-BAG+ 50 ML IVPB SCH ×2 (08:51→19:38)
[2018-08-16] MEDS: SODIUM CHLORIDE 0.9% (FLUSH) 10 ML SYG IV SCH (19:35)
[2018-08-16] MEDS ORDERED: CEFEPIME 2 GM in SODIUM CHL 0.9% 50ML MIN-BAG+ 50 ML IVPB ONE (20:00)
[2018-08-16] MEDS: VANCOMYCIN HCL INJ 1,000 MG, VANCOMYCIN HCL INJ 250 MG in SODIUM CHLORIDE 0.9% 250ML 25... IVPB SCH (20:08)
[2018-08-16] MEDS ORDERED: VANCOMYCIN HCL INJ 1,000 MG, VANCOMYCIN HCL INJ 250 MG in SODIUM CHLORIDE 0.9% 250ML 25... IVPB ONE (20:30)
[2018-08-17] MEDS: CEFEPIME 2 GM in SODIUM CHL 0.9% 50ML MIN-BAG+ 50 ML IVPB SCH ×2 (07:41→19:45)
[2018-08-17] MEDS: SODIUM CHLORIDE 0.9% (FLUSH) 10 ML SYG IV SCH ×2 (07:42→19:45)
[2018-08-17] MEDS ORDERED: VANCOMYCIN HCL INJ 1,000 MG, VANCOMYCIN HCL INJ 250 MG in SODIUM CHLORIDE 0.9% 250ML 25... IVPB ONE (08:00)
[2018-08-17] MEDS ORDERED: CEFEPIME 2 GM in SODIUM CHL 0.9% 50ML MIN-BAG+ 50 ML IVPB ONE ×2 (08:00→20:00)
[2018-08-17] MEDS: VANCOMYCIN HCL INJ 1,000 MG, VANCOMYCIN HCL INJ 250 MG in SODIUM CHLORIDE 0.9% 250ML 25... IVPB SCH (08:30)
[2018-08-18] MEDS: CEFEPIME 2 GM in SODIUM CHL 0.9% 50ML MIN-BAG+ 50 ML IVPB SCH ×2 (07:52→20:00)
[2018-08-18] MEDS ORDERED: CEFEPIME 2 GM in SODIUM CHL 0.9% 50ML MIN-BAG+ 50 ML IVPB ONE (08:00)
[2018-08-18] MEDS: SODIUM CHLORIDE 0.9% (FLUSH) 10 ML SYG IV SCH ×2 (08:30→20:00)
[2018-08-19] MEDS: SODIUM CHLORIDE 0.9% (FLUSH) 10 ML SYG IV SCH (07:59)
[2018-08-19] MEDS ORDERED: VANCOMYCIN HCL INJ 1,000 MG, VANCOMYCIN HCL INJ 250 MG in SODIUM CHLORIDE 0.9% 250ML 25... IVPB ONE (08:00)
[2018-08-19] MEDS: CEFEPIME 2 GM in SODIUM CHL 0.9% 50ML MIN-BAG+ 50 ML IVPB SCH (08:00)
[2018-08-19] MEDS ORDERED: VANCOMYCIN HCL INJ 1,000 MG in SODIUM CHLORIDE 0.9% 250ML 250 ML IVPB ONE (08:00)
[2018-08-19] MEDS ORDERED: CEFEPIME 2 GM in SODIUM CHL 0.9% 50ML MIN-BAG+ 50 ML IVPB ONE (08:00)
[2018-08-19] MEDS: VANCOMYCIN HCL INJ 1,000 MG in SODIUM CHLORIDE 0.9% 250ML 250 ML IVPB SCH (08:55)
[2018-08-19] MEDS: VANCOMYCIN HCL INJ 1,000 MG, VANCOMYCIN HCL INJ 250 MG in SODIUM CHLORIDE 0.9% 250ML 25... IVPB SCH (09:00)
[2018-08-20] MEDS: SODIUM CHLORIDE 0.9% (FLUSH) 10 ML SYG IV SCH ×3 (01:39→20:06)
[2018-08-20] MEDS: CEFEPIME 2 GM in SODIUM CHL 0.9% 50ML MIN-BAG+ 50 ML IVPB SCH ×3 (01:39→20:03)
[2018-08-20] MEDS ORDERED: VANCOMYCIN HCL INJ 1,000 MG, VANCOMYCIN HCL INJ 250 MG in SODIUM CHLORIDE 0.9% 250ML 25... IVPB ONE (08:00)
[2018-08-20] MEDS ORDERED: VANCOMYCIN HCL INJ 1,000 MG in SODIUM CHLORIDE 0.9% 250ML 250 ML IVPB ONE (08:00)
[2018-08-20] MEDS ORDERED: CEFEPIME 2 GM in SODIUM CHL 0.9% 50ML MIN-BAG+ 50 ML IVPB ONE ×2 (08:30→20:00)
[2018-08-20] MEDS: VANCOMYCIN HCL INJ 1,000 MG in SODIUM CHLORIDE 0.9% 250ML 250 ML IVPB SCH (08:55)
[2018-08-20] MEDS: VANCOMYCIN HCL INJ 1,000 MG, VANCOMYCIN HCL INJ 250 MG in SODIUM CHLORIDE 0.9% 250ML 25... IVPB SCH (08:56)
[2018-08-21] MEDS ORDERED: CEFEPIME 2 GM in SODIUM CHL 0.9% 50ML MIN-BAG+ 50 ML IVPB ONE ×2 (08:00→20:00)
[2018-08-21] MEDS: CEFEPIME 2 GM in SODIUM CHL 0.9% 50ML MIN-BAG+ 50 ML IVPB SCH ×2 (08:24→20:05)
[2018-08-21] MEDS: SODIUM CHLORIDE 0.9% (FLUSH) 10 ML SYG IV SCH ×2 (08:25→20:05)
[2018-08-21] MEDS ORDERED: VANCOMYCIN HCL INJ 1,000 MG, VANCOMYCIN HCL INJ 250 MG in SODIUM CHLORIDE 0.9% 250ML 25... IVPB ONE (09:00)
[2018-08-21] MEDS ORDERED: VANCOMYCIN HCL INJ 1,000 MG in SODIUM CHLORIDE 0.9% 250ML 250 ML IVPB ONE (09:00)
[2018-08-21] MEDS: VANCOMYCIN HCL INJ 1,000 MG in SODIUM CHLORIDE 0.9% 250ML 250 ML IVPB SCH (09:01)
[2018-08-21] MEDS: VANCOMYCIN HCL INJ 1,000 MG, VANCOMYCIN HCL INJ 250 MG in SODIUM CHLORIDE 0.9% 250ML 25... IVPB SCH (09:02)
[2018-08-22] MEDS: CEFEPIME 2 GM in SODIUM CHL 0.9% 50ML MIN-BAG+ 50 ML IVPB SCH ×2 (07:56→19:57)
[2018-08-22] MEDS ORDERED: CEFEPIME 2 GM in SODIUM CHL 0.9% 50ML MIN-BAG+ 50 ML IVPB ONE (08:00)
[2018-08-22] MEDS: SODIUM CHLORIDE 0.9% (FLUSH) 10 ML SYG IV SCH ×2 (08:37→19:58)
[2018-08-22] MEDS: VANCOMYCIN HCL INJ 1,000 MG, VANCOMYCIN HCL INJ 250 MG in SODIUM CHLORIDE 0.9% 250ML 25... IVPB SCH (08:47)
[2018-08-22] MEDS: VANCOMYCIN HCL INJ 1,000 MG in SODIUM CHLORIDE 0.9% 250ML 250 ML IVPB SCH (10:35)
[2018-08-22] MEDS ORDERED: SODIUM CHLORIDE 0.9% IVPB ONE (20:00)
[2018-08-22] MEDS ORDERED: CEFEPIME IVPB ONE (20:00)
[2018-08-23] MEDS ORDERED: CEFEPIME 2 GM in SODIUM CHL 0.9% 50ML MIN-BAG+ 50 ML IVPB ONE ×2 (08:00→20:00)
[2018-08-23] MEDS: CEFEPIME 2 GM in SODIUM CHL 0.9% 50ML MIN-BAG+ 50 ML IVPB SCH ×2 (08:04→20:08)
[2018-08-23] MEDS: SODIUM CHLORIDE 0.9% (FLUSH) 10 ML SYG IV SCH ×2 (08:04→20:07)
[2018-08-23] MEDS: VANCOMYCIN HCL INJ 1,000 MG, VANCOMYCIN HCL INJ 250 MG in SODIUM CHLORIDE 0.9% 250ML 25... IVPB SCH (08:44)
[2018-08-23] MEDS ORDERED: VANCOMYCIN HCL INJ 1,000 MG in SODIUM CHLORIDE 0.9% 250ML 250 ML IVPB ONE (09:00)
[2018-08-23] MEDS ORDERED: VANCOMYCIN HCL INJ 1,000 MG, VANCOMYCIN HCL INJ 250 MG in SODIUM CHLORIDE 0.9% 250ML 25... IVPB ONE (09:00)
[2018-08-23] MEDS: VANCOMYCIN HCL INJ 1,000 MG in SODIUM CHLORIDE 0.9% 250ML 250 ML IVPB SCH (10:07)
[2018-08-24] MEDS: CEFEPIME 2 GM in SODIUM CHL 0.9% 50ML MIN-BAG+ 50 ML IVPB SCH ×2 (08:00→19:53)
[2018-08-24] MEDS ORDERED: CEFEPIME 2 GM in SODIUM CHL 0.9% 50ML MIN-BAG+ 50 ML IVPB ONE ×2 (08:00→20:00)
[2018-08-24] MEDS: SODIUM CHLORIDE 0.9% (FLUSH) 10 ML SYG IV SCH ×2 (08:00→19:53)
[2018-08-24] MEDS: VANCOMYCIN HCL INJ 1,000 MG, VANCOMYCIN HCL INJ 250 MG in SODIUM CHLORIDE 0.9% 250ML 25... IVPB SCH (09:00)
[2018-08-24] MEDS ORDERED: VANCOMYCIN HCL INJ 1,000 MG in SODIUM CHLORIDE 0.9% 250ML 250 ML IVPB ONE (09:00)
[2018-08-24] MEDS ORDERED: VANCOMYCIN HCL INJ 1,000 MG, VANCOMYCIN HCL INJ 250 MG in SODIUM CHLORIDE 0.9% 250ML 25... IVPB ONE (09:00)
[2018-08-24] MEDS: VANCOMYCIN HCL INJ 1,000 MG in SODIUM CHLORIDE 0.9% 250ML 250 ML IVPB SCH (09:02)
[2018-08-25] MEDS: CEFEPIME 2 GM in SODIUM CHL 0.9% 50ML MIN-BAG+ 50 ML IVPB SCH ×2 (07:42→19:38)
[2018-08-25] MEDS: SODIUM CHLORIDE 0.9% (FLUSH) 10 ML SYG IV SCH ×3 (07:43→20:40)
[2018-08-25] MEDS ORDERED: CEFEPIME 2 GM in SODIUM CHL 0.9% 50ML MIN-BAG+ 50 ML IVPB ONE ×2 (08:00→20:00)
[2018-08-25] MEDS: VANCOMYCIN HCL INJ 1,000 MG in SODIUM CHLORIDE 0.9% 250ML 250 ML IVPB SCH (08:41)
[2018-08-25] MEDS: VANCOMYCIN HCL INJ 1,000 MG, VANCOMYCIN HCL INJ 250 MG in SODIUM CHLORIDE 0.9% 250ML 25... IVPB SCH (08:45)
[2018-08-25] MEDS ORDERED: VANCOMYCIN HCL INJ 1,000 MG, VANCOMYCIN HCL INJ 250 MG in SODIUM CHLORIDE 0.9% 250ML 25... IVPB ONE (09:00)
[2018-08-25] MEDS ORDERED: VANCOMYCIN HCL INJ 1,000 MG in SODIUM CHLORIDE 0.9% 250ML 250 ML IVPB ONE (09:00)
[2018-08-26] MEDS: CEFEPIME 2 GM in SODIUM CHL 0.9% 50ML MIN-BAG+ 50 ML IVPB SCH ×2 (07:54→20:03)
[2018-08-26] MEDS: SODIUM CHLORIDE 0.9% (FLUSH) 10 ML SYG IV SCH ×2 (07:55→20:03)
[2018-08-26] MEDS ORDERED: CEFEPIME 2 GM in SODIUM CHL 0.9% 50ML MIN-BAG+ 50 ML IVPB ONE ×2 (08:00→20:00)
[2018-08-26] MEDS ORDERED: VANCOMYCIN HCL INJ 1,000 MG, VANCOMYCIN HCL INJ 500 MG in SODIUM CHLORIDE 0.9% 250ML 25... IVPB SCH (08:30)
[2018-08-26] MEDS ORDERED: VANCOMYCIN HCL INJ 1,000 MG, VANCOMYCIN HCL INJ 500 MG in SODIUM CHLORIDE 0.9% 250ML 25... IVPB ONE (09:00)
[2018-08-27] MEDS: SODIUM CHLORIDE 0.9% (FLUSH) 10 ML SYG IV SCH ×2 (07:50→19:51)
[2018-08-27] MEDS: CEFEPIME 2 GM in SODIUM CHL 0.9% 50ML MIN-BAG+ 50 ML IVPB SCH ×2 (07:51→19:51)
[2018-08-27] MEDS ORDERED: CEFEPIME 2 GM in SODIUM CHL 0.9% 50ML MIN-BAG+ 50 ML IVPB ONE ×2 (08:00→20:00)
[2018-08-27] MEDS: VANCOMYCIN HCL INJ 1,000 MG, VANCOMYCIN HCL INJ 500 MG in SODIUM CHLORIDE 0.9% 250ML 25... IVPB SCH (08:30)
[2018-08-27] MEDS ORDERED: VANCOMYCIN HCL INJ 1,000 MG, VANCOMYCIN HCL INJ 500 MG in SODIUM CHLORIDE 0.9% 250ML 25... IVPB ONE (09:00)
[2018-08-28] MEDS: SODIUM CHLORIDE 0.9% (FLUSH) 10 ML SYG IV SCH ×2 (07:56→20:06)
[2018-08-28] MEDS: CEFEPIME 2 GM in SODIUM CHL 0.9% 50ML MIN-BAG+ 50 ML IVPB SCH ×2 (07:57→20:05)
[2018-08-28] MEDS ORDERED: CEFEPIME 2 GM in SODIUM CHL 0.9% 50ML MIN-BAG+ 50 ML IVPB ONE ×2 (08:00→20:00)
[2018-08-28] MEDS: VANCOMYCIN HCL INJ 1,000 MG, VANCOMYCIN HCL INJ 500 MG in SODIUM CHLORIDE 0.9% 250ML 25... IVPB SCH (08:34)
[2018-08-28] MEDS ORDERED: VANCOMYCIN HCL INJ 1,000 MG, VANCOMYCIN HCL INJ 500 MG in SODIUM CHLORIDE 0.9% 250ML 25... IVPB ONE (09:00)
[2018-08-28 20:08] VITALS: O2SAT 95
[2018-08-29 07:00] VITALS: BP 154/66; TEMP 97.1
[2018-08-29] MEDS: CEFEPIME 2 GM in SODIUM CHL 0.9% 50ML MIN-BAG+ 50 ML IVPB SCH (07:07)
[2018-08-29] MEDS: SODIUM CHLORIDE 0.9% (FLUSH) 10 ML SYG IV SCH (07:08)
[2018-08-29] MEDS ORDERED: CEFEPIME 2 GM in SODIUM CHL 0.9% 50ML MIN-BAG+ 50 ML IVPB ONE (08:00)
[2018-08-29] MEDS: VANCOMYCIN HCL INJ 1,000 MG, VANCOMYCIN HCL INJ 500 MG in SODIUM CHLORIDE 0.9% 250ML 25... IVPB SCH (08:23)
[2018-08-29] MEDS ORDERED: VANCOMYCIN HCL INJ 1,000 MG, VANCOMYCIN HCL INJ 500 MG in SODIUM CHLORIDE 0.9% 250ML 25... IVPB ONE (09:00)
--- NOTE | 2018-08-29 11:30 | US ---
EXAM DESCRIPTION: Venous,Upper Extremity LEFT: ULTRASOUND. CLINICAL HISTORY: Left upper extremity, swelling, edema. COMPARISON: None Available. TECHNIQUE: Two -dimensional and doppler sonographic evaluation of the deep venous system of the left upper extremity. FINDINGS: Doppler evaluation shows decreased color flow and venous waveform in the left axillary vein and left basilic vein. On grayscale evaluation, echogenic material seen in the venous lumen and these veins are not compressible. Doppler evaluation showing normal color flow and normal phasicity and augmentation of the left subclavian, jugular, cephalic, brachial, radial vein and ulnar vein. These left upper extremity deep veins with normal Doppler, showed normal compressibility and occlusion with transducer pressure. Two-dimensional survey showed no echogenic thrombus within these veins. IMPRESSION: Duplex ultrasound evaluation of the left upper extremity deep venous system showing no thrombosis in the left axillary vein and left basilic vein. Electronically signed by: Gage Brito MD 08/29/2018 11:28 AM COUNCIL MEMBER
== END 2018-08-26 18:00 | disposition home or self-care (01) ==
LOC: EDSTATUS 08:00 → INFRM 08:00
PROVIDERS: ATTEND Internal Medicine Infectious Disease
DX: M86.8X7 Other osteomyelitis, ankle and foot (principal)
CPT/HCPCS: 36415; 80053; 80202; 82565; 85025; 85651; 86140; 96365; 96366; 96367; A4216; G0463; J0692; J3370; J7050

== ENCOUNTER 2018-08-29 13:19 | Inpatient (IN) | payer MEDICARE, MEDICAID ==
--- NOTE | 2018-08-29 13:20 | HP ---
SUPERVISING PHYSICIAN: Jun Gomez M.D. CHIEF COMPLAINT: Left upper arm pain. HISTORY OF PRESENT ILLNESS: This is a 68 year-old male patient who has been coming to the hospital on a daily basis for IV antibiotic treatment being managed by Dr. Armendariz for osteomyelitis of the right foot. The nurse noted during his treatment that his left hand was quite swollen and after talking to the patient he said that yesterday morning his left arm felt very itchy. At first he did not think much about it, then yesterday he noticed that he could not close his left hand and there was soreness and warmth in that left upper arm. A sonogram was performed on the patient and it was found to be positive for a deep venous thrombosis. The report was called to Dr. Arellano, his primary care physician, and he recommended the patient be directly admitted to the hospital for treatment of that left upper arm DVT. Because the patient is seeing Dr. Armendariz, I informed her that the patient had a PICC line in the arm with the DVT and she felt that it was fine to leave the PICC line and to treat him for the DVT, and to continue with his antibiotic therapy as previously ordered. He has been on vancomycin per Pharmacy protocol as well as Cefepime 2 grams b.i.d. He has been doing that for approximately 2 weeks. He also sees a ict security specialist at [facility] in [place] and has wound care 3 times a week on his left foot. His WBCs were 5.4 with hemoglobin 11.8, hematocrit 35.1. Electrolytes are basically within normal limits. BUN 29, creatinine 1.43. His baseline creatinine appears to be about 1.2. The patient was admitted to the hospital. PAST MEDICAL HISTORY: 1. Hypertension. 2. 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 3. Diabetes mellitus type 2. 4. Peripheral vascular disease. PAST SURGICAL HISTORY: 1. Multiple foot surgeries with several amputated toes as well as incisions and drainage. OUTPATIENT MEDICATIONS: Per the EMR and awaiting verification. ALLERGIES: NO KNOWN DRUG ALLERGIES. FAMILY HISTORY: Positive for congestive heart failure. SOCIAL HISTORY: He lives in [place]. He denies any tobacco, ETOH or illicit drug use. REVIEW OF SYSTEMS: Negative except as per History of Present Illness. PHYSICAL EXAMINATION: VITAL SIGNS: Temperature 98.6, heart rate 76, blood pressure 165/80, respiratory rate 20, O2 sat 94% on room air. GENERAL: This is a 68 year-old male patient who is lying in his hospital bed. He is in no acute distress. HEENT: Normocephalic and atraumatic. Pupils are equal and reactive. Oropharynx is clear. NECK: Supple without mass. RESPIRATORY: Essentially clear to auscultation bilaterally. CHEST: There is equal rise and fall of the chest with inspiration and expiration. CARDIOVASCULAR: Regular rate and rhythm. GASTROINTESTINAL: Abdomen is soft, nondistended, non-tender. Bowel sounds are positive. EXTREMITIES: His left upper arm is erythematous as well as slightly warm. It is also edematous. The nurses have marked his arm and will continue to record the circumference of his upper arm. His bilateral radial pulses are palpable at +2. He does have a dressing to his right lower foot that is dry and intact. He has +1 edema to his lower extremities. Bilateral pedal pulses are +2. NEUROLOGIC: He is awake, alert and oriented times three. LABORATORY: Labs and films are as per History of Present Illness. ASSESSMENT: 1. Deep venous thrombosis of the left upper extremity. 2. Osteomyelitis of the right foot currently on IV antibiotic therapy being managed by Dr. Armendariz, Infectious Diseases. 3. Diabetes mellitus type 2. 4. Hypertension. 5. Recent influenza A infection that was treated with Tamiflu. 6. Peripheral vascular disease. PLAN: We will admit the patient to the hospital. He will be on Lovenox 1 mg per kg b.i.d. Will transition him to another anticoagulant tomorrow morning. I have also given him some IV fluid. Will continue his home medicines as soon as they have been verified. He will be on a PPI for ulcer prophylaxis. Will continue his vancomycin and Cefepime as Dr. Armendariz ordered. At this point we will keep the PICC line, but will communicate with Dr. Armendariz if there are any issues with the line in case it should be discontinued. Will do wound care here at the hospital. Will call the wound care clinic at [facility] to get wound care orders. I will repeat his labs in the morning. I have also added a CRP and an ESR to the current labs. Will put him on sliding scale insulin with a.c. and h.s. Humalog insulin coverage. We will continue to monitor the patient closely and follow as needed. Dr. Gomez is the collaborating physician available for consultation. #[id number] [facility]
[2018-08-29] MEDS ORDERED: SODIUM CHLORIDE 0.9% (FLUSH) 10 ML SYG IV PRN (13:43)
[2018-08-29] MEDS ORDERED: ALBUTEROL SULFATE 2.5 MG/3 ML VIAL NEB PRN (13:43)
[2018-08-29] MEDS ORDERED: TEMAZEPAM 15 MG CAP PO PRN (13:43)
[2018-08-29] MEDS ORDERED: ONDANSETRON INJ 4 MG/2 ML VIAL IV PRN (13:43)
[2018-08-29] MEDS ORDERED: GLUCAGON INJ 1 MG VIAL SUBCU PRN (13:47)
[2018-08-29] MEDS ORDERED: DEXTROSE 50% 25 GM/50 ML SYG IV PRN (13:47)
[2018-08-29] MEDS ORDERED: VANCOMYCIN PER PHARMACY INJ SCH (14:00)
[2018-08-29] MEDS ORDERED: IV SET AND CAP CHANGE INJ INJ SCH (14:00)
[2018-08-29] MEDS: PANTOPRAZOLE SODIUM IV 40 MG VIAL IV SCH (14:28)
[2018-08-29] MEDS: ENOXAPARIN SODIUM 40 MG/0.4 ML SYG SUBCU SCH (14:29)
[2018-08-29] MEDS: ENOXAPARIN SODIUM 80 MG/0.8 ML SYG SUBCU SCH (14:29)
[2018-08-29] MEDS: INSULIN LISPRO 100 UNITS/ML PEN SUBCU SCH ×3 (17:12→21:05)
[2018-08-29] MEDS: metFORMIN HCL 500 MG TAB PO SCH (17:13)
[2018-08-29] MEDS ORDERED: ATENOLOL 25 MG TAB ONE (18:59)
[2018-08-29] MEDS ORDERED: ATORVASTATIN 20 MG TAB PO ONE (18:59)
[2018-08-29] MEDS ORDERED: CEFEPIME 2 GM VIAL ONE (19:00)
[2018-08-29] MEDS ORDERED: SODIUM CHL 0.9% 50ML MIN-BAG+ 50 ML IVPB ONE (19:00)
[2018-08-29] MEDS: CEFEPIME 2 GM in SODIUM CHL 0.9% 50ML MIN-BAG+ 50 ML IVPB SCH (19:33)
[2018-08-29] MEDS: ATORVASTATIN 20 MG TAB PO SCH (20:35)
[2018-08-29] MEDS: SODIUM CHLORIDE 0.9% (FLUSH) 10 ML SYG IV SCH (20:36)
[2018-08-29] MEDS: ATENOLOL 25 MG TAB PO SCH (20:37)
[2018-08-29] MEDS: ALBUTEROL SULFATE 2.5 MG/3 ML VIAL NEB SCH (20:50)
[2018-08-30] MEDS: ENOXAPARIN SODIUM 80 MG/0.8 ML SYG SUBCU SCH ×3 (03:05→23:46)
[2018-08-30] MEDS: ENOXAPARIN SODIUM 40 MG/0.4 ML SYG SUBCU SCH ×2 (03:05→15:19)
[2018-08-30] MEDS: PANTOPRAZOLE SODIUM IV 40 MG VIAL IV SCH (06:02)
[2018-08-30] MEDS ORDERED: SODIUM CHL 0.9% 50ML MIN-BAG+ 50 ML IVPB ONE ×2 (06:52→17:27)
[2018-08-30] MEDS ORDERED: CEFEPIME 2 GM VIAL ONE ×2 (06:52→17:27)
[2018-08-30] MEDS: metFORMIN HCL 500 MG TAB PO SCH ×3 (07:22→16:57)
[2018-08-30] MEDS: INSULIN LISPRO 100 UNITS/ML PEN SUBCU SCH ×7 (07:23→21:09)
[2018-08-30] MEDS: CEFEPIME 2 GM in SODIUM CHL 0.9% 50ML MIN-BAG+ 50 ML IVPB SCH ×2 (07:26→19:49)
[2018-08-30] MEDS: INSULIN DETEMIR 100 UNITS/ML PEN SUBCU SCH (08:34)
[2018-08-30] MEDS: ATENOLOL 25 MG TAB PO SCH ×2 (08:35→20:31)
[2018-08-30] MEDS: SODIUM CHLORIDE 0.9% (FLUSH) 10 ML SYG IV SCH ×2 (08:35→20:31)
[2018-08-30] MEDS: ALBUTEROL SULFATE 2.5 MG/3 ML VIAL NEB SCH ×2 (08:50→21:30)
[2018-08-30] MEDS ORDERED: VANCOMYCIN HCL INJ 500 MG VIAL ONE (09:18)
[2018-08-30] MEDS ORDERED: SODIUM CHLORIDE 0.9% 250ML 250 ML ONE (09:19)
[2018-08-30] MEDS ORDERED: VANCOMYCIN HCL INJ 1,000 MG VIAL IVPB ONE (09:19)
[2018-08-30] MEDS: VANCOMYCIN HCL INJ 1,000 MG, VANCOMYCIN HCL INJ 500 MG in SODIUM CHLORIDE 0.9% 250ML 25... IVPB SCH (09:26)
--- NOTE | 2018-08-30 12:19 | RAD ---
Chest 2 views INDICATION: PICC line placement DVT IMPRESSION: Left arm PICC line with tip in the upper SVC. Mild vascular congestion and prominent interstitial markings. No lobar consolidation. No large effusion or pneumothorax. Heart size within normal limits for technique. Degenerative changes thoracic spine. Otherwise no acute process. Electronically signed by: Ton Jurado MD 08/30/2018 12:17 PM ROLLWAY WORKER
[2018-08-30] MEDS: ATORVASTATIN 20 MG TAB PO SCH (20:31)
[2018-08-30] MEDS ORDERED: MAGNESIUM SULFATE PREMIX 2GM 2 GM in PREMIX BAG 1 BAG IVPB ONE (20:53)
[2018-08-30] MEDS ORDERED: MAGNESIUM SULFATE PREMIX 2GM 50 ML IVPB ONE (21:10)
--- NOTE | 2018-08-30 21:55 | PN ---
DATE: 08/30/18 SUPERVISING PHYSICIAN: Jun Gomez M.D. SUBJECTIVE: The patient is sitting up in a chair in his room. He has been walking around in his room and is quite concerned about his left arm. We discussed his anticoagulation treatment and that we would switch him to an oral anticoagulant, and he would have to see his primary care physician, Dr. Arellano, for the length of treatment. Otherwise he had no complaints of chest pain, shortness of breath, nausea, vomiting, diarrhea or constipation. OBJECTIVE: VITAL SIGNS: Temperature 98.2, heart rate 56, blood pressure 153/78, respiratory rate 18, O2 sat 98% on room air. RESPIRATORY: Essentially clear to auscultation bilaterally. CARDIAC: Regular rate and rhythm. At times he is bradycardic. GASTROINTESTINAL: Abdomen is soft, nondistended, non-tender. Bowel sounds are positive. EXTREMITIES: Bilateral radial pulses are palpable at +2. Upper biceps increased from 51 to 52 cm overnight. Mid biceps was 41.5 cm and increased to 43 cm. His lower biceps was 40 cm yesterday and was 41 cm today. His left hand is slightly more edematous than it was yesterday. There was erythema. NEUROLOGIC: He is awake, alert and oriented times three. LABORATORY: CBC is basically unremarkable. Blood sugars have run between 112 and 333. Electrolytes are basically within normal limits with the exception of his magnesium is 1.6. Liver enzymes are within normal limits. Chest x-ray shows left arm PICC line with tip in the upper SVC. Mild vascular congestion and prominent interstitial markings. No lobar consolidations. Large effusions or pneumothorax. Degenerative changes of the thoracic spine, otherwise no acute processes. All other labs and films have been reviewed via the EMR. ASSESSMENT: 1. Deep venous thrombosis of the left upper extremity. 2. Osteomyelitis of the right foot currently on IV antibiotic therapy being managed by Dr. Armendariz, Infectious Diseases. 3. Diabetes mellitus type 2. 4. Hypertension. 5. Recent influenza A infection that was treated with Tamiflu. 6. Peripheral vascular disease. PLAN: We will continue present supportive care. He will be transition off of his Lovenox and started on Xarelto 15 mg b.i.d., and he will be give a started pack when he leaves the hospital with close followup with Dr. Arellano, his primary care physician. I have also given him some magnesium supplementation. Will check his lab in the morning. Otherwise we plan for discharge tomorrow or the next day with continued outpatient antibiotic therapy as ordered previously by Dr. Armendariz. We will continue to monitor him closely and follow as needed. #[id number] [facility]
[2018-08-30] MEDS ORDERED: ENOXAPARIN SODIUM 80 MG/0.8 ML SYG SUBCU ONE (23:52)
[2018-08-30] MEDS ORDERED: ENOXAPARIN SODIUM 40 MG/0.4 ML SYG SUBCU ONE (23:52)
[2018-08-31] MEDS: PANTOPRAZOLE SODIUM IV 40 MG VIAL IV SCH (06:02)
[2018-08-31] MEDS ORDERED: SODIUM CHL 0.9% 50ML MIN-BAG+ 50 ML IVPB ONE (07:16)
[2018-08-31] MEDS ORDERED: SODIUM CHLORIDE 0.9% 250ML 250 ML ONE (07:16)
[2018-08-31] MEDS ORDERED: VANCOMYCIN HCL INJ 500 MG VIAL ONE (07:16)
[2018-08-31] MEDS ORDERED: CEFEPIME 2 GM VIAL ONE (07:17)
[2018-08-31] MEDS ORDERED: VANCOMYCIN HCL INJ 1,000 MG VIAL IVPB ONE (07:17)
[2018-08-31] MEDS: INSULIN LISPRO 100 UNITS/ML PEN SUBCU SCH ×2 (07:38→07:39)
[2018-08-31] MEDS: metFORMIN HCL 500 MG TAB PO SCH (08:03)
[2018-08-31] MEDS: CEFEPIME 2 GM in SODIUM CHL 0.9% 50ML MIN-BAG+ 50 ML IVPB SCH (08:42)
[2018-08-31] MEDS: INSULIN DETEMIR 100 UNITS/ML PEN SUBCU SCH (08:43)
[2018-08-31] MEDS: ATENOLOL 25 MG TAB PO SCH (08:43)
[2018-08-31] MEDS: SODIUM CHLORIDE 0.9% (FLUSH) 10 ML SYG IV SCH (08:45)
[2018-08-31] MEDS: ALBUTEROL SULFATE 2.5 MG/3 ML VIAL NEB SCH (08:51)
[2018-08-31] MEDS ORDERED: RIVAROXABAN 15 MG TAB PO SCH (09:00)
[2018-08-31] MEDS: VANCOMYCIN HCL INJ 1,000 MG, VANCOMYCIN HCL INJ 500 MG in SODIUM CHLORIDE 0.9% 250ML 25... IVPB SCH (09:28)
[2018-08-31 10:23] VITALS: BP 191/73; TEMP 98.1; O2SAT 95
--- NOTE | 2018-08-31 18:39 | DS ---
SUPERVISING PHYSICIAN: Jun Gomez M.D. DISCHARGE DIAGNOSIS: 1. Deep venous thrombosis of the left upper extremity. 2. Osteomyelitis of the right foot currently on IV antibiotic therapy being managed by Dr. Armendariz, Infectious Diseases. 3. Diabetes mellitus type 2. 4. Hypertension. 5. Recent influenza A infection that was treated with Tamiflu. 6. Peripheral vascular disease. HISTORY OF PRESENT ILLNESS: This is a 68 year-old male patient who has been coming to the hospital twice daily for antibiotic treatment being managed by Dr. Armendariz for osteomyelitis of the right foot. On the date of admission, the nurse noted during his treatment that his left hand was quite swollen as well as his left arm and after talking to the patient he said that yesterday morning his left arm felt very itchy as well as very tight. He did not think much about it at the time, but then he noticed that he could not close his left hand and there was soreness and warmth in that left upper arm. A sonogram was performed on the patient and it was found to be positive for a deep venous thrombosis. The report was called to Dr. Arellano, his primary care physician, and he recommended the patient be directly admitted to the hospital for treatment of that left upper arm DVT. I contacted Dr. Armendariz to inform her that he was being treated in the hospital for a DVT. She said to continue his present antibiotic therapy and she felt that it be okay to leave the PICC line in place. He has been on vancomycin and Cefepime. It has been going on for about 2 weeks. He is supposed to complete 6 weeks of total treatment. He also sees a economic development specialist at [facility] for his left foot. Initially his WBCs were 5.4 with hemoglobin 11.8, hematocrit 35.1. Electrolytes are basically within normal limits. BUN 29, creatinine 1.43. His baseline creatinine appears to be about 1.2. HOSPITAL COURSE: The following day his arm seemed to be somewhat worsened. His bilateral radial pulses were palpable, but on measuring his upper biceps initially it was 51 cm and it increased to 52. Today it was 49. His mid biceps initially was 41.5. It increased to 43 cm and today it is 41. His lower biceps around the antecubital area was 40 cm on admission. Yesterday it was 41 and today it is 40.5 cm. He initially was treated with Lovenox 1 mg per kg twice daily. It was transitioned to Xarelto with a started pack at 15 mg b.i.d. The edema and erythema to his left arm has improved greatly. He does have some concerns about his medications as he feels like he is not taking his medications appropriately as he previously had [facility] to help him with his medications and since he is doing outpatient therapy, he is having to set his medications up by himself and he is somewhat confused about those medications. I recommended that he bring his medications in to the hospital for his evening treatment and the nurses would go through his medicines and I would double check them if necessary. He is stable and on his oral anticoagulants, and he will be discharged home in stable condition. LABORATORY: WBCs remain stable. Today it is 5,700. Hemoglobin and hematocrit are stable at 11.4 and 34. Blood sugars were as high as 333 but in the last 24 hours have run between 112 and 176. Electrolytes have been within normal limits, except magnesium was low at 1.5. He was given supplementation and today it is 2. Initially his creatinine was 1.43, today it is 1.13. BUN was 29 and today it is 22. RADIOLOGY: Chest x-ray showed left arm PICC line with tip in the upper SVC, mild vascular congestion and prominent interstitial markings. No lobar consolidation. No large effusion or pneumothorax. Degenerative changes of the thoracic spine, otherwise no acute process. Sonogram is as per History of Present Illness. DISCHARGE PLAN: The patient will be discharged home in stable condition. He is to resume his outpatient therapy for antibiotic treatment as ordered previously per Dr. Armendariz, Infectious Diseases in [place]. He is to followup with Dr. Arellano on 09/09/18 at 2:00 PM. I have recommended that he bring in all of his medication bottles so that his medications can be verified by Dr. Arellano' office. He is also to continue with his wound care per Dr. Manning in [place]. He is to return to the hospital or call Dr. Arellano' office for any problems or complications. DISCHARGE MEDICATIONS: 1. NovoLog insulin. 2. Tenormin. 3. Lipitor. 4. Lantus insulin. 5. Metformin. 6. Lasix. 7. Cefepime. 8. Xarelto started pack 15 mg b.i.d. times 3 weeks, then increase to 20 mg daily. 9. Vancomycin. #[id number] [facility]
== END 2018-08-31 11:40 | disposition home or self-care (01) | DRG 300 ==
LOC: MS 13:19
PROVIDERS: ADMIT Nurse Practitioner Acute Care; ATTEND Nurse Practitioner Acute Care
DX: I82.622 Acute embolism and thrombosis of deep veins of left upper extremity (principal); M86.8X7 Other osteomyelitis, ankle and foot; E11.69 Type 2 diabetes mellitus with other specified complication; E11.51 Type 2 diabetes mellitus with diabetic peripheral angiopathy without gangrene; I10 Essential (primary) hypertension; Z79.2 Long term (current) use of antibiotics; Z95.828 Presence of other vascular implants and grafts

== ENCOUNTER 2019-04-08 09:38 | Inpatient (IN) | payer MEDICARE, MEDICAID ==
[2019-04-08] MEDS ORDERED: PIPERACILLIN/TAZOBACTAM 3.375 GM in SODIUM CHLORIDE 0.9% 100ML 100 ML IVPB ONE (09:57)
[2019-04-08] MEDS ORDERED: ACETAMINOPHEN 500 MG TAB PO ONE (09:57)
[2019-04-08] MEDS ORDERED: VANCOMYCIN HCL INJ 1,000 MG in SODIUM CHLORIDE 0.9% 250ML 250 ML IVPB ONE (09:57)
[2019-04-08] MEDS ORDERED: SODIUM CHLORIDE 0.9% 1000ML 1,000 ML IVS ONE (09:57)
--- NOTE | 2019-04-08 10:03 | ED.PDOC ---
History of Present Illness - General Chief Complaint: Lower Extremity Injury Stated Complaint: diabetic ulcers to feet Time Seen by Provider: 04/08/19 09:48 - History of Present Illness Initial Comments: 69 yo M PMH HTN HL DM with right toe amputations x 4 (has little finger) h/o PICC line antibiotic infusion pt. of Dr. Arellano presents to ED c/o R foot redness and pain progressing over 6 weeks. Pt. was trying to get to wound care but couldn't get in so presented here. Denies fever chills nausea vomiting diarrhea chest pain sob diaphoresis. No change in diet rest bowel or bladder denies drinking or smoking admits FH HTN DM no other c/o today. Allergies/Adverse Reactions: Allergies NO KNOWN ALLERGY Allergy (Verified 08/29/18 13:38) Home Medications: Ambulatory Orders Atenolol [Tenormin] 100 mg PO BID 10/29/14 Atorvastatin Calcium [Lipitor] 80 mg PO BEDTIME 10/29/14 Insulin Aspart [Novolog Flexpen] 10 unit SC TID 10/29/14 Insulin Glargine [Lantus Solostar] 30 unit SC BID 10/29/14 Metformin HCl [Metformin Hydrochloride] 500 mg PO TID 08/29/18 Furosemide [Lasix] 20 mg PO DAILY 04/08/19 Review of Systems - Review of Systems Constitutional: States: see HPI EENTM: States: no symptoms reported Respiratory: States: no symptoms reported Cardiology: States: no symptoms reported Gastrointestinal/Abdominal: States: no symptoms reported Genitourinary: States: no symptoms reported Musculoskeletal: States: see HPI Skin: States: see HPI Neurological: States: no symptoms reported Endocrine: States: see HPI Hematologic/Lymphatic: States: no symptoms reported All other Systems: Reviewed and Negative Past Medical History (General) - Patient Medical History Hx Seizures: No Hx Stroke: No Hx Asthma: No Hx of COPD: No Hx Cardiac Disorders: No Hx Congestive Heart Failure: No Hx Pacemaker: No Hx Hypertension: Yes Hx Diabetes: Yes Hx MRSA: No - Social History Hx Tobacco Use: No Hx Alcohol Use: No Hx Substance Use: No Hx Physical Abuse: No Hx Emotional Abuse: No Family Medical History - Family History Mother Name: Fanny Centeno Living Status: Age at (years of age): 65 Cause of : Cancer Hx Family Asthma: No Hx Family Congestive Heart Failure: No Hx Family Hypertension: Yes Hx Family Stroke: No Hx Cardiac Disease: No Hx Family Diabetes: No Hx Family Cancer: Yes Physical Exam - Physical Exam General Appearance: No apparent distress Eyes, Ears, Nose, Throat: normal ENT inspection Neck: non-tender, full range of motion Cardiovascular/Respiratory: regular rate, rhythm Gastrointestinal/Abdominal: non-tender Back: normal inspection Thigh/Hip: normal inspection Leg: normal inspection Knee: normal inspection Ankle: normal inspection Foot: infection, soft tissue tenderness, swelling, other - erythematous malodorous warm R foor with ulceration to sole mid foot and lesion to medial forefoot Progress - Progress Progress: 04/08/19 10:06 A/P-R Foot Cellulitis, R Foot Pain 1.iv bolus lactate cbc cmp tylenol blood cultures zosyn vancomycin xr r foot esr crp ADMIT 04/08/19 11:21 Laboratory Tests 04/08/19 04/08/19 04/08/19 10:10 10:10 10:10 WBC 8.7 RBC 4.21 L Hgb 12.2 L Hct 36.1 L MCV 85.8 MCH 29.0 MCHC 33.8 RDW 14.0 Plt Count 478 H MPV 7.6 Absolute Neuts (auto) 5.70 Absolute Lymphs (auto) 2.10 Absolute Monos (auto) 0.70 Absolute Eos (auto) 0.10 Absolute Basos (auto) 0.10 Neutrophils % 65.8 Lymphocytes % 24.5 Monocytes % 7.5 Eosinophils % 1.1 Basophils % 1.1 Sodium 132 L Potassium 3.5 L Chloride 95 L Carbon Dioxide 25 Anion Gap 15.5 BUN 17 Creatinine 1.43 H BUN/Creatinine Ratio 11.9 Random Glucose 335 H Serum Osmolality 279.2 Lactic Acid 1.0 Calcium 8.5 Total Bilirubin 0.5 AST 15 ALT 15 Alkaline Phosphatase 72 C-Reactive Protein Serum Total Protein 6.7 Albumin 2.1 L Globulin 4.6 H Albumin/Globulin Ratio 0.5 L 04/08/19 10:10 WBC RBC Hgb Hct MCV MCH MCHC RDW Plt Count MPV Absolute Neuts (auto) Absolute Lymphs (auto) Absolute Monos (auto) Absolute Eos (auto) Absolute Basos (auto) Neutrophils % Lymphocytes % Monocytes % Eosinophils % Basophils % Sodium Potassium Chloride Carbon Dioxide Anion Gap BUN Creatinine BUN/Creatinine Ratio Random Glucose Serum Osmolality Lactic Acid Calcium Total Bilirubin AST ALT Alkaline Phosphatase C-Reactive Protein 18.7 H* Serum Total Protein Albumin Globulin Albumin/Globulin Ratio 04/08/19 11:29 Study: 3 Views of the Left Foot. Indication: heel ulcer Comparison: None. Impression: Mild osteoarthritis first MTP joint. 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 Calcaneal spurring at the Achilles tendon insertion and plantar fascia origin. Subcutaneous emphysema plantar to the plantar to calcaneal heel spur. No definitive osteolysis or periostitis. If high clinical concern for osteomyelitis, correlation with MRI recommended. Soft tissue swelling throughout the hindfoot. Electronically signed by: Malcolm Khan MD 04/08/2019 11:00 AM CDT EXAM DESCRIPTION: Foot,Right 3 Views CLINICAL HISTORY: 69 years, Male, cellulitis COMPARISON: None TECHNIQUE: Three views right foot FINDINGS: Three views right foot demonstrate markedly abnormal appearance with resection of the first ray including the metatarsal and toe with soft tissue gas and ulceration in the overlying soft tissues and dystrophic soft tissue calcification or remnants of the first metatarsal noted in the region of the base. There is hypertrophic change and thickening of the second metatarsal shaft and to a lesser extent third metatarsals shaft with the second proximal phalanx remaining as well as the fifth toe. The third and fourth toes are completely amputated. Advanced hypertrophic and degenerative changes at the tarsal metatarsal articulation is present with the hindfoot proximal to this point essentially normal. Extensive calcaneal spurring is noted. Soft tissue swelling and apparent ulceration along the plantar surface of the foot involving the mid and forefoot is evident. Aggressive moth-eaten appearance or bony destructive changes to suggest acute osteomyelitis are not evident at this time. IMPRESSION: Markedly abnormal right foot with amputation of the entire first ray with bony remnants or dystrophic calcification remaining at the base with ulceration in the medial and plantar aspect of the foot. Partial amputation of the second toe incomplete amputation of the third and fourth toes with sclerotic hypertrophic bony changes involving the second and third metatarsals but no evidence of acute or active destructive process. Electronically signed by: Haim Kline MD 04/08/2019 10:31 AM CDT 04/08/19 11:55 04/08/19 11:58 Anselmo Lynn accepts patient for admission Departure - Departure Clinical Impression: Cellulitis of right foot, Right foot pain, Left foot pain Time of Disposition: 12:00 Disposition: Admit Patient Condition: Fair Departure Forms: ED Discharge - Pt. Copy, Patient Portal Self Enrollment Instructions: DI for Leg Pain Referrals: Loc Arellano MD [Primary Care Provider] - 1-2 Weeks Home Medications: Ambulatory Orders Atenolol [Tenormin] 100 mg PO BID 10/29/14 Atorvastatin Calcium [Lipitor] 80 mg PO BEDTIME 10/29/14 Insulin Aspart [Novolog Flexpen] 10 unit SC TID 10/29/14 Insulin Glargine [Lantus Solostar] 30 unit SC BID 10/29/14 Metformin HCl [Metformin Hydrochloride] 500 mg PO TID 08/29/18 Furosemide [Lasix] 20 mg PO DAILY 04/08/19 Decision To Admit - Decistion To Admit Decision to Admit Date: 04/08/19 Decision to Admit Time: 11:59
[2019-04-08] MEDS ORDERED: VANCOMYCIN HCL INJ 1,000 MG VIAL IVPB ONE ×2 (10:17→14:01)
[2019-04-08] MEDS ORDERED: PIPERACILLIN/TAZOBACTAM 3.375 GM VIAL IVPB ONE ×4 (10:17→22:07)
[2019-04-08] MEDS ORDERED: SODIUM CHLORIDE 0.9% 100ML 100 ML IVPB ONE ×4 (10:18→22:07)
[2019-04-08] MEDS ORDERED: SODIUM CHLORIDE 0.9% 250ML 250 ML ONE ×2 (10:18→14:01)
--- NOTE | 2019-04-08 10:33 | RAD ---
EXAM DESCRIPTION: Foot,Right 3 Views CLINICAL HISTORY: 69 years, Male, cellulitis COMPARISON: None TECHNIQUE: Three views right foot FINDINGS: Three views right foot demonstrate markedly abnormal appearance with resection of the first ray including the metatarsal and toe with soft tissue gas and ulceration in the overlying soft tissues and dystrophic soft tissue calcification or remnants of the first metatarsal noted in the region of the base. There is hypertrophic change and thickening of the second metatarsal shaft and to a lesser extent third metatarsals shaft with the second proximal phalanx remaining as well as the fifth toe. The third and fourth toes are completely amputated. Advanced hypertrophic and degenerative changes at the tarsal metatarsal articulation is present with the hindfoot proximal to this point essentially normal. Extensive calcaneal spurring is noted. Soft tissue swelling and apparent ulceration along the plantar surface of the foot involving the mid and forefoot is evident. Aggressive moth-eaten appearance or bony destructive changes to suggest acute osteomyelitis are not evident at this time. IMPRESSION: Markedly abnormal right foot with amputation of the entire first ray with bony remnants or dystrophic calcification remaining at the base with ulceration in the medial and plantar aspect of the foot. Partial amputation of the second toe incomplete amputation of the third and fourth toes with sclerotic hypertrophic bony changes involving the second and third metatarsals but no evidence of acute or active destructive process. Electronically signed by: Haim Kline MD 04/08/2019 10:31 AM CDT
[2019-04-08] MEDS ORDERED: ATENOLOL 25 MG TAB PO ONE (10:36)
--- NOTE | 2019-04-08 11:02 | RAD ---
Study: 3 Views of the Left Foot. Indication: heel ulcer Comparison: None. Impression: Mild osteoarthritis first MTP joint. 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 Calcaneal spurring at the Achilles tendon insertion and plantar fascia origin. Subcutaneous emphysema plantar to the plantar to calcaneal heel spur. No definitive osteolysis or periostitis. If high clinical concern for osteomyelitis, correlation with MRI recommended. Soft tissue swelling throughout the hindfoot. Electronically signed by: Malcolm Khan MD 04/08/2019 11:00 AM CDT
--- NOTE | 2019-04-08 12:31 | HP ---
SUPERVISING PHYSICIAN: Rigo Davis MD CHIEF COMPLAINT: Right foot pain and swelling. HISTORY OF PRESENT ILLNESS: This is a 69-year-old male the patient with a history of osteomyelitis of the right lower extremity as well as MRSA infection requiring outpatient IV antibiotics in the past. He came into the Emergency Room with right foot redness and pain getting increasingly worse over the last several weeks, however, he states some wounds popped up over the past couple of days. He usually is seen in [place] and Dr. Mcknight has addressed the patient and actually done some amputations of his toes in the past. He has been on antibiotics under the direction of Dr. Armendariz in the past for osteomyelitis as well. However, he called the wound care clinic that he visits there and they could not get him in until April, so he came to the Emergency Room. He was evaluated in the Emergency Room and had a normal white count, but he had CRP of 18.7 on his labs. Chemistry was pretty much unremarkable. He had a little bit of elevation of his creatinine. The Emergency Room physician called for admission for these reasons. At the time of examination, the patient is alert and oriented. He is not complaining of any significant pain at this time. PAST MEDICAL HISTORY: 1. Hypertension. 2. 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 3. Diabetes mellitus, type 2. 4. Peripheral vascular disease. PAST SURGICAL HISTORY: 1. Multiple surgeries to his right foot including amputation of some toes and I&Ds in the past. MEDICATIONS: 1. Atenolol 100 mg p.o. b.i.d. 2. Atorvastatin 80 mg p.o. at bedtime. 3. Furosemide 20 mg daily. 4. NovoLog 10 units subcutaneously with meals. 5. Lantus 10 subcutaneously b.i.d. 6. Metformin 500 mg p.o. t.i.d. ALLERGIES: NO KNOWN DRUG ALLERGIES. FAMILY HISTORY: Congestive heart failure. SOCIAL HISTORY: No alcohol, no drugs, no smoking. REVIEW OF SYSTEMS: CONSTITUTIONAL: No fever or chills. No recent weight loss or weight gain. HEENT: No headaches, vision changes, ear pain, nasal congestion or throat pain. RESPIRATORY: No cough, hemoptysis or pleuritic chest pain. CARDIOVASCULAR: No chest pain, palpitations. Positive for peripheral edema. GASTROINTESTINAL: No nausea, vomiting, diarrhea, constipation or abdominal pain. GENITOURINARY: No dysuria, frequency or flank pain. SKIN: As per history of present illness. ENDOCRINE: No polydipsia, polyuria or polyphagia. No heat or cold intolerance. NEUROLOGIC: No syncope, paresthesias or seizures. PHYSICAL EXAMINATION: VITAL SIGNS: Blood pressure 161/72. Heart rate 72. Respiratory rate 18. Temperature 97.4. Oxygen saturation 99%. GENERAL: Mr. Cadena is a 69-year-old male patient in no acute distress currently. NEUROLOGIC: The patient is alert and oriented. LUNGS: Clear to auscultation bilaterally. CARDIOVASCULAR: Regular rate and rhythm. Normal S1, S2. ABDOMEN: Soft, obese. Positive bowel sounds. No tenderness to palpation. GENITOURINARY: Deferred. EXTREMITIES: Lower extremities showing a heel ulcer on the left foot which is not currently draining. The right foot is deformed from previous amputations and surgical interventions. He has a plantar aspect ulcer which is quite advanced. He has a mediolateral ulcer which has some purulent drainage. The right lower extremity is edematous and erythematous as well. ASSESSMENT: 1. Right lower extremity cellulitis with diabetic foot ulcer with a history of osteomyelitis in the past. 2. Diabetes mellitus, type 2. 3. Hypertension. 4. History of peripheral vascular disease. PLAN: At this time, we will continue the Zosyn and the vancomycin that was started in the Emergency Room. We will start on DVT and GI ulcer prophylaxis as well. I will utilize sliding scale while he is here in the hospital. We will see how he does on the IV antibiotics, but given his history, may need transfer to [place] if he does not improve. I am going to get a CT scan to evaluate for osteomyelitis and Doppler studies to ensure there are no DVTs and see what his arterial flow is as well. #[id number] [facility]
[2019-04-08] MEDS ORDERED: SODIUM CHLORIDE 0.9% (FLUSH) 10 ML SYG IV PRN ×2 (12:49→12:50)
[2019-04-08] MEDS ORDERED: IV SET AND CAP CHANGE INJ INJ SCH ×2 (13:00)
[2019-04-08] MEDS ORDERED: ENOXAPARIN SODIUM 40 MG/0.4 ML SYG SUBCU SCH (13:00)
[2019-04-08] MEDS ORDERED: VANCOMYCIN PER PHARMACY INJ SCH (13:00)
[2019-04-08] MEDS: VANCOMYCIN HCL INJ 750 MG in SODIUM CHLORIDE 0.9% 250ML 250 ML IVPB SCH ×2 (13:50→14:06)
[2019-04-08] MEDS: ENOXAPARIN SODIUM 40 MG/0.4 ML SYG SUBCU SCH (14:03)
[2019-04-08] MEDS: KCL 20 MEQ/NS 1,000 ML IVS PRN (14:04)
[2019-04-08] MEDS: PIPERACILLIN/TAZOBACTAM 3.375 GM in SODIUM CHLORIDE 0.9% 100ML 100 ML IVPB SCH ×2 (15:09→21:46)
--- NOTE | 2019-04-08 15:26 | CT ---
EXAM DESCRIPTION: Lower Extremity CLINICAL HISTORY: 69 years Male, rule out osteomyelitis COMPARISON: None. TECHNIQUE: This exam was performed according to our departmental dose-optimization program, which includes automated exposure control, adjustment of the mA and/or kV according to patient size and/or use of iterative reconstruction technique. Noncontrast CT examination of the right ankle hindfoot and leg with soft tissue and bone window images. FINDINGS: Diffuse cutaneous and subcutaneous edematous changes surrounding the ankle and dorsum of the midfoot and forefoot with less severe edema along the plantar surface of the foot. There is a gas-filled ulcer at the medial aspect of the right forefoot with evidence of prior amputation of the great toe and first metatarsal except a dystrophic component of the base of the first metatarsal with only the proximal phalanx of the second toe remaining incomplete removal of the third and fourth toes. The fifth toe remains intact. Advanced degenerative changes at the tarsal metatarsal junction is apparent. Calcaneal spurring is present without destructive process and the talus and tarsal navicular are intact without evidence of destructive process or disruption of the ankle mortise or distal leg. Fourth and fifth metatarsal shafts appear relatively normal but deformity of the second and third metatarsal shafts suggests either old infection or old fractures with healing. No evidence of cortical destruction or soft tissue gas in this region to suggest osteomyelitis noted. Localized gas at the medial aspect of the forefoot is approximately 1 cm deep and 1.5 cm in diameter consistent with a moderately deep ulcer that approaches but does not surround the remnants of the first metatarsal. Cortical destructive changes to suggest recurrent osteomyelitis is not apparent. IMPRESSION: 1. Extensive cutaneous and subcutaneous and to a lesser extent deep soft tissue swelling involving the dorsum of the head and forefoot and to a lesser extent the plantar surface with an approximate 1 x 1.5 cm gas pocket medially and slightly inferiorly involving the forefoot without evidence of aggressive cortical destruction or gas within the joint spaces to suggest osteomyelitis. 2. Resection of almost the entirety of the first metatarsal and the great toe with remaining proximal phalanx of the second toe and amputation of the third and fourth toes. 3. Deformity and hypertrophic bony changes without acute destruction involving the second and third metatarsals suggests old injury or old infection with no evidence of acute process. The fourth and fifth metatarsal shafts are normal in appearance and the fifth toe remains essentially intact with metallic deformity of the distal phalanx. 4. No drainable soft tissue fluid collection within the markedly edematous soft tissues noted. Electronically signed by: Haim Kline MD 04/08/2019 3:24 PM CDT
[2019-04-08] MEDS ORDERED: GLUCAGON INJ 1 MG VIAL SUBCU PRN (17:25)
[2019-04-08] MEDS ORDERED: DEXTROSE 50% 25 GM/50 ML SYG IV PRN (17:25)
[2019-04-08] MEDS ORDERED: ATENOLOL 25 MG TAB ONE (20:44)
[2019-04-08] MEDS ORDERED: ATORVASTATIN 20 MG TAB PO ONE (20:44)
[2019-04-08] MEDS ORDERED: NON-FORMULARY MEDICATION 1 EA MIS (Atorvastatin Calcium [Lipitor] 80 MG) PO SCH (21:00)
[2019-04-08] MEDS ORDERED: INSULIN GLARGINE 30 UNIT SC SCH (21:00)
[2019-04-08] MEDS ORDERED: ATENOLOL 100 MG PO SCH (21:00)
[2019-04-08] MEDS ORDERED: metFORMIN HCL 500 MG TAB PO SCH (21:00)
[2019-04-08] MEDS: INSULIN LISPRO 100 UNITS/ML PEN SUBCU SCH (21:43)
[2019-04-08] MEDS ORDERED: INSULIN DETEMIR 100 UNITS/ML PEN SUBCU ONE (21:50)
[2019-04-08] MEDS: INSULIN DETEMIR 100 UNITS/ML PEN SUBCU SCH (21:52)
[2019-04-09] MEDS: KCL 20 MEQ/NS 1,000 ML IVS PRN ×2 (05:12→21:35)
[2019-04-09] MEDS ORDERED: SODIUM CHLORIDE 0.9% 100ML 100 ML IVPB ONE ×3 (06:03→18:53)
[2019-04-09] MEDS ORDERED: PIPERACILLIN/TAZOBACTAM 3.375 GM VIAL IVPB ONE ×3 (06:03→18:53)
[2019-04-09] MEDS: PIPERACILLIN/TAZOBACTAM 3.375 GM in SODIUM CHLORIDE 0.9% 100ML 100 ML IVPB SCH ×3 (06:12→21:32)
[2019-04-09] MEDS: OMEPRAZOLE CAP 20 MG CAP PO SCH (06:12)
[2019-04-09] MEDS ORDERED: FUROSEMIDE 40 MG TAB ONE (07:20)
[2019-04-09] MEDS ORDERED: ATENOLOL 25 MG TAB ONE (07:20)
[2019-04-09] MEDS ORDERED: VANCOMYCIN HCL INJ 1,000 MG VIAL IVPB ONE (07:21)
[2019-04-09] MEDS ORDERED: SODIUM CHLORIDE 0.9% 500ML 500 ML ONE (07:21)
[2019-04-09] MEDS: INSULIN LISPRO 100 UNITS/ML PEN SUBCU SCH ×4 (07:31→21:02)
--- NOTE | 2019-04-09 08:11 | US ---
EXAM DESCRIPTION: Venous,Lower Extremity RT (accession [id number]), Venous,Lower Extremity LT (accession [id number]): Ultrasound. CLINICAL HISTORY: edema, bilateral lower extremities.DVT COMPARISON: Bilateral lower extremity Doppler ultrasound evaluation of the arterial systems. TECHNIQUE: Two -dimensional and doppler sonographic evaluation of the deep venous system of the bilateral lower extremities. FINDINGS: Doppler evaluation shows normal color flow and normal phasicity and augmentation of the bilateral common femoral veins, junctions with the bilateral proximal saphenous veins, femoral veins, popliteal veins, greater saphenous veins junction with the CFVs, peroneal veins, posterior . Tibial veins. These veins showed normal occlusion with transducer pressure. Two-dimensional survey showed no echogenic clot within these veins. IMPRESSION: Duplex ultrasound evaluation of the bilateral lower extremity deep venous systems showing no evidence of thrombosis. Electronically signed by: Gage Brito MD 04/09/2019 8:10 AM CDT
--- NOTE | 2019-04-09 08:12 | US ---
EXAM DESCRIPTION: Venous,Lower Extremity RT (accession [id number]), Venous,Lower Extremity LT (accession [id number]): Ultrasound. CLINICAL HISTORY: edema, bilateral lower extremities.DVT COMPARISON: Bilateral lower extremity Doppler ultrasound evaluation of the arterial systems. TECHNIQUE: Two -dimensional and doppler sonographic evaluation of the deep venous system of the bilateral lower extremities. FINDINGS: Doppler evaluation shows normal color flow and normal phasicity and augmentation of the bilateral common femoral veins, junctions with the bilateral proximal saphenous veins, femoral veins, popliteal veins, greater saphenous veins junction with the CFVs, peroneal veins, posterior . Tibial veins. These veins showed normal occlusion with transducer pressure. Two-dimensional survey showed no echogenic clot within these veins. IMPRESSION: Duplex ultrasound evaluation of the bilateral lower extremity deep venous systems showing no evidence of thrombosis. Electronically signed by: Gage Brito MD 04/09/2019 8:10 AM CDT
--- NOTE | 2019-04-09 08:25 | US ---
EXAM DESCRIPTION: Extremity,Lower RT Arteries (accession [id number]), Extremity,Lower LT Arteries (accession [id number]): Ultrasound. CLINICAL HISTORY: edema, PVD, checking flow COMPARISON: None. TECHNIQUE: Doppler evaluation of the bilateral lower extremity arterial flow waveforms and velocities. FINDINGS: Arterial waveforms in the right lower extremity are triphasic in the right common femoral artery and the proximal right femoral artery. Biphasic in the right middle femoral artery and distal femoral artery. Monophasic in the popliteal peroneal and [employer] SERVER vessels. [place]oth waveform in the right DPA.. Arterial waveforms in the left lower extremity are biphasic or triphasic from the left common femoral artery through the left popliteal artery. Severely diminished monophasic waveform in the left [employer]OUNT[employer] SERVER. Biphasic waveform in the left peroneal and left DPA.. Comments: Elevated velocity in the right [employer] SERVER could be due to a partially stenosing lesion similar findings in the proximal left peroneal artery. Dysfunctional monophasic waveform and flow velocity in the distal right [employer] SERVER indicating proximal and somewhat distant severe stenosis. Elevated monophasic waveform in the distal right DPA could be due to a high-grade stenosis in the distal right MADHU. IMPRESSION: Significant atherosclerotic occlusive disease bilaterally more affecting the right lower extremity. Elevated velocity in the right [employer]OUNT[employer] SERVER could be due to a partially stenosing lesion similar findings in the proximal left peroneal artery. Dysfunctional monophasic waveform and flow velocity in the distal right [employer] SERVER indicating proximal and somewhat distant severe stenosis. Elevated monophasic waveform in the distal right DPA could be due to a high-grade stenosis in the distal right MADHU.. Consider follow-up evaluation with bilateral lower extremity CTA Electronically signed by: Gage Brito MD 04/09/2019 8:23 AM CDT
--- NOTE | 2019-04-09 08:26 | US ---
EXAM DESCRIPTION: Extremity,Lower RT Arteries (accession [id number]), Extremity,Lower LT Arteries (accession [id number]): Ultrasound. CLINICAL HISTORY: edema, PVD, checking flow COMPARISON: None. TECHNIQUE: Doppler evaluation of the bilateral lower extremity arterial flow waveforms and velocities. FINDINGS: Arterial waveforms in the right lower extremity are triphasic in the right common femoral artery and the proximal right femoral artery. Biphasic in the right middle femoral artery and distal femoral artery. Monophasic in the popliteal peroneal and [employer] SERVICE [employer]ER vessels. Saw[place]oth waveform in the right DPA.. Arterial waveforms in the left lower extremity are biphasic or triphasic from the left common femoral artery through the left popliteal artery. Severely diminished monophasic waveform in the left [employer]ER[employer] SERVICE RESTORER. Biphasic waveform in the left peroneal and left DPA.. Comments: Elevated velocity in the right [employer] SERVICE [employer]ORER could be due to a partially stenosing lesion similar findings in the proximal left peroneal artery. Dysfunctional monophasic waveform and flow velocity in the distal right [employer] SERVICE [employer]ORER indicating proximal and somewhat distant severe stenosis. Elevated monophasic waveform in the distal right DPA could be due to a high-grade stenosis in the distal right MADHU. IMPRESSION: Significant atherosclerotic occlusive disease bilaterally more affecting the right lower extremity. Elevated velocity in the right [employer]ER[employer] SERVICE RESTORER could be due to a partially stenosing lesion similar findings in the proximal left peroneal artery. Dysfunctional monophasic waveform and flow velocity in the distal right [employer]ER[employer] SERVICE RESTORER indicating proximal and somewhat distant severe stenosis. Elevated monophasic waveform in the distal right DPA could be due to a high-grade stenosis in the distal right MADHU.. Consider follow-up evaluation with bilateral lower extremity CTA Electronically signed by: Gage Brito MD 04/09/2019 8:23 AM CDT
[2019-04-09] MEDS: FUROSEMIDE 40 MG TAB PO SCH (08:52)
[2019-04-09] MEDS: ATENOLOL 25 MG TAB PO SCH ×2 (08:52→20:52)
[2019-04-09] MEDS: metFORMIN HCL 500 MG TAB PO SCH ×3 (08:52→17:23)
[2019-04-09] MEDS: INSULIN DETEMIR 100 UNITS/ML PEN SUBCU SCH ×2 (08:56→21:25)
[2019-04-09] MEDS: VANCOMYCIN HCL INJ 1,750 MG in SODIUM CHLORIDE 0.9% 500ML 500 ML IVPB SCH (11:17)
[2019-04-09] MEDS: ENOXAPARIN SODIUM 40 MG/0.4 ML SYG SUBCU SCH (13:02)
--- NOTE | 2019-04-09 14:13 | PN ---
SUPERVISING PHYSICIAN: Rigo Davis MD DATE: 04/09/19 SUBJECTIVE: The patient does not really feel any different. His right lower extremity is covered with a dressing. He is not complaining of any pain at this time. OBJECTIVE: VITAL SIGNS: Blood pressure 131/79. Heart rate 79. Respiratory rate 16. Temperature 97.0. Oxygen saturation 89%. GENERAL: Mr. Cadena is a 69-year-old male patient in no active distress. NEUROLOGIC: Alert and oriented. LUNGS: Clear to auscultation bilaterally. CARDIOVASCULAR: Regular rate and rhythm. Normal S1, S2. ABDOMEN: Soft. Positive bowel sounds. EXTREMITIES: Lower extremities with right foot in a dressing. Right lower extremity is still edematous and erythematous. The left lower extremity with minimal edema. LABORATORY: Sodium 139, potassium. 34, chloride 102, CO2 25, BUN 15, creatinine 1.31, glucose 91, calcium 8.0. RADIOLOGY: CT scan lower extremities yesterday was consistent with soft tissue infectious process, but no osteomyelitis. There was no DVT on venous ultrasound and the arterial Dopplers did show some findings consistent with peripheral vascular disease and suggested maybe a CT angiogram at some point. ASSESSMENT: 1. Right lower extremity cellulitis with diabetic foot ulcer. 2. Diabetes mellitus, type 2. 3. Hypertension. 4. History of peripheral vascular disease. PLAN: At this point, we will continue the antibiotics as they are scheduled. We are still waiting on culture results. There is no evidence of osteotome. I think at some point we may have to contact Dr. Mcknight, his foot surgeon in [place], to see if he has any other recommendations. At this point, however, I think getting the cultures first would be of benefit. Additionally, as stated above, he may need a CT angiogram of the lower extremities to see if there is chance of improved vascularization of his lower extremities. We will reevaluate him tomorrow and continue to monitor cultures as well. #[id number] [facility]
[2019-04-09] MEDS ORDERED: ATORVASTATIN 20 MG TAB PO ONE (18:53)
[2019-04-09] MEDS ORDERED: ATORVASTATIN 20 MG TAB PO SCH (21:00)
[2019-04-10] MEDS ORDERED: PIPERACILLIN/TAZOBACTAM 3.375 GM VIAL IVPB ONE (04:28)
[2019-04-10] MEDS ORDERED: SODIUM CHLORIDE 0.9% 100ML 100 ML IVPB ONE (04:28)
[2019-04-10] MEDS: PIPERACILLIN/TAZOBACTAM 3.375 GM in SODIUM CHLORIDE 0.9% 100ML 100 ML IVPB SCH (05:54)
[2019-04-10] MEDS: OMEPRAZOLE CAP 20 MG CAP PO SCH (06:15)
[2019-04-10] MEDS: INSULIN LISPRO 100 UNITS/ML PEN SUBCU SCH ×2 (08:18→12:11)
[2019-04-10] MEDS ORDERED: SODIUM CHLORIDE 0.9% 500ML 500 ML ONE (08:28)
[2019-04-10] MEDS ORDERED: VANCOMYCIN HCL INJ 1,000 MG VIAL IVPB ONE (08:28)
[2019-04-10] MEDS: metFORMIN HCL 500 MG TAB PO SCH (08:38)
[2019-04-10] MEDS ORDERED: CHLORHEXIDINE GLUC 4% 15ML 45 ML, WATER FOR IRRIGATION 1,000 ML TOP SCH ×2 (09:00)
[2019-04-10 09:04] VITALS: BP 188/83; TEMP 97.2; O2SAT 97
[2019-04-10] MEDS: FUROSEMIDE 40 MG TAB PO SCH (09:06)
[2019-04-10] MEDS: ATENOLOL 25 MG TAB PO SCH (09:06)
[2019-04-10] MEDS: INSULIN DETEMIR 100 UNITS/ML PEN SUBCU SCH (09:53)
[2019-04-10] MEDS ORDERED: SODIUM CHLORIDE 0.9% (FLUSH) 10 ML SYG IV ONE (10:06)
[2019-04-10] MEDS: VANCOMYCIN HCL INJ 1,750 MG in SODIUM CHLORIDE 0.9% 500ML 500 ML IVPB SCH (11:20)
--- NOTE | 2019-04-16 21:49 | DS ---
SUPERVISING PHYSICIAN: Rigo Davis M.D. ADMISSION DIAGNOSIS: 1. Right lower extremity cellulitis with diabetic foot ulcer with a history of osteomyelitis in the past. 2. Diabetes mellitus, type 2. 3. Hypertension. 4. History of peripheral vascular disease. DISCHARGE DIAGNOSIS: 1. Right lower extremity cellulitis with diabetic foot ulcer with the patient needing further consultation with wound management and surgical evaluation. 2. Diabetes mellitus, type 2. 3. Hypertension. 4. History of peripheral vascular disease. 5. Foot ulcer with final culture results showing Proteus mirabilis that was pansensitive. REASON FOR HOSPITALIZATION: This is a 69-year-old male the patient with a history of osteomyelitis of the right lower extremity as well as MRSA infection requiring outpatient IV antibiotics in the past. He came into the Emergency Room with right foot redness and pain getting increasingly worse over the last several weeks, however, he states some wounds popped up over the past couple of days. He usually is seen in [place] and Dr. Mcknight has addressed the patient and actually done some amputations of his toes in the past. He has been on antibiotics under the direction of Dr. Armendariz in the past for osteomyelitis as well. However, he called the wound care clinic that he visits there and they could not get him in until April, so he came to the Emergency Room. He was evaluated in the Emergency Room and had a normal white count, but he had CRP of 18.7 on his labs. Chemistry was pretty much unremarkable. He had a little bit of elevation of his creatinine. The Emergency Room physician called for admission for these reasons. At the time of examination, the patient is alert and oriented. He is not complaining of any significant pain at this time. LABORATORY STUDIES: White count on admission was 8,700, hemoglobin 12.2, hematocrit 36.1. Differential showed to be without a left shift. ESR was elevated at 122. Chemistries showed a reactive protein of 8.6. BNP is 662. At discharge, his electrolytes were within normal limits except for just a mildly low potassium at 3.4, BUN was 16, creatinine 1.31. Blood sugars were ranging between 91 and 335. Lactic acid was normal at 1.0 and again his C reactive protein was 18.7. Liver functions were all within normal limits. MICROBIOLOGY: Wound culture is pending. At discharge showed Proteus mirabilis that was pansensitive. Blood cultures remain negative after 5 days. RADIOLOGY: He had a foot x-ray initially in the [facility] and per radiology interpretation showed markedly abnormal right foot with amputation of the entire first ray with bony remnants and dystrophic calcification remaining at the base of the ulceration in the medial and plantar aspect. Partial amputation of the second toe and incomplete amputation of the third and fourth toes with sclerotic hypertrophic bony changes involving the second and third metatarsals but no evidence of active or acute destructive process. He had bilateral ultrasounds which were negative for DVTs. He had Doppler arterial studies bilaterally and there was note of significant atherosclerotic occlusion disease bilaterally of the right and lower extremity. Please see that report for full details. HOSPITAL COURSE: Mr. Cadena was admitted for initiation of parenteral antibiotics secondary to diabetic ulcer. He was given antibiotics for duration but was showing little response and it was felt that the wound was such that it needed to be reevaluated for possible surgical intervention and further assessment by Infectious Disease specialist. He was stable hemodynamically and was to be transferred to [facility]. DISCHARGE PHYSICAL EXAMINATION: VITAL SIGNS: Temperature 97.2, pulse 58, blood pressure 188/83, respirations 18, satting 97% on room air. VITAL SIGNS: Blood pressure 131/79. Heart rate 79. Respiratory rate 16. Temperature 97.0. Oxygen saturation 89%. GENERAL: Mr. Cadena is a 69-year-old male patient in no active distress. NEUROLOGIC: Alert and oriented. LUNGS: Clear to auscultation bilaterally. CARDIOVASCULAR: Regular rate and rhythm. Normal S1, S2. ABDOMEN: Soft. Positive bowel sounds. EXTREMITIES: Lower extremities with right foot in a dressing. Right lower extremity is still edematous and erythematous. The left lower extremity with minimal edema. PLAN: Mr. Cadena was transferred to [facility] for a higher level of care, including surgical and Infectious Disease for a diabetic ulcer that was not healing. Condition on discharge was stable. DISPOSITION: The patient is transferred to [facility]. [id number]
== END 2019-04-10 12:55 | disposition short-term general hospital (02) | DRG 603 ==
LOC: ER 09:38 → MS 12:29 → OBSVTOIN 12:29
PROVIDERS: ADMIT Nurse Practitioner; ATTEND Nurse Practitioner Family
DX: L03.115 Cellulitis of right lower limb (principal); E11.621 Type 2 diabetes mellitus with foot ulcer; I10 Essential (primary) hypertension; E11.51 Type 2 diabetes mellitus with diabetic peripheral angiopathy without gangrene; B96.4 Proteus (mirabilis) (morganii) as the cause of diseases classified elsewhere; L97.519 Non-pressure chronic ulcer of other part of right foot with unspecified severity; Z86.14 Personal history of Methicillin resistant Staphylococcus aureus infection; Z89.421 Acquired absence of other right toe(s); Z79.4 Long term (current) use of insulin; Z79.899 Other long term (current) drug therapy

== ENCOUNTER 2019-06-05 05:45 | Day surgery (SDC) | payer MEDICARE, OTHER ==
[2019-06-05] MEDS ORDERED: PROPOFOL 200 MG/20 ML VIAL IV ONE (07:00)
[2019-06-05] MEDS ORDERED: LIDOCAINE 1% 10 ML VIAL INJ ONE (07:00)
[2019-06-05] MEDS ORDERED: LACTATED RINGERS 1,000 ML ONE ×2 (07:05→10:05)
[2019-06-05] MEDS ORDERED: ceFAZolin SODIUM 1 GM VIAL ONE (07:05)
[2019-06-05] MEDS ORDERED: SODIUM CHL 0.9% 100ML MINI-BAG 100 ML IVPB ONE (07:06)
[2019-06-05] MEDS ORDERED: LACTATED RINGERS 1,000 ML IVS ONE ×2 (07:37→10:10)
[2019-06-05] MEDS ORDERED: INSULIN LISPRO 100 UNITS/ML PEN SUBCU ONE ×2 (08:02→08:43)
[2019-06-05] MEDS ORDERED: SODIUM CHLORIDE 0.9% 1000ML 1,000 ML ONE (08:34)
[2019-06-05] MEDS ORDERED: BUPIVACAINE 0.5% W/EPI 30 ML VIAL INJ ONE (08:35)
[2019-06-05] MEDS ORDERED: HEPARIN SODIUM 100 U/ML 5 ML SYG IV ONE (08:35)
[2019-06-05] MEDS ORDERED: fentaNYL CITRATE INJ 50 MCG/ML AMP ONE (08:42)
[2019-06-05] MEDS ORDERED: MIDAZOLAM INJ 2 MG/2 ML VIAL ONE (08:42)
[2019-06-05] MEDS ORDERED: KETAMINE HCL 100 MG/ML VIAL ONE (09:04)
[2019-06-05] MEDS ORDERED: SODIUM CHLORIDE 0.9% 1,000 ML BAG IVS ONE (09:19)
[2019-06-05] MEDS ORDERED: ELECTROLYTE-A 1,000 ML IVS ONE (09:24)
[2019-06-05] MEDS ORDERED: ERTAPENEM 1 GM VIAL IVPB ONE (10:10)
--- NOTE | 2019-06-05 10:14 | OP ---
DATE OF PROCEDURE: 06/05/19 PREOPERATIVE DIAGNOSIS: 1. Long-term antibiotic therapy, needing access. POSTOPERATIVE DIAGNOSIS: 1. Long-term antibiotic therapy, needing access. PROCEDURE: 1. Placement of Port-A-Cath. 2. Ultrasound guidance for placement if intravenous catheter. 3. Intraoperative fluoroscopy, 1 minute, to assess placement of catheter. SURGEON: Loc Weinstein MD. ANESTHESIA: General and local. COMPLICATIONS: None. ESTIMATED BLOOD LOSS: 10 mL. CONDITION: Stable. PLAN: Discharge. INDICATION: This is a 69-year-old man who had a Medline. It was dislodged. He needs chronic antibiotic therapy for diabetic foot ulcers and infection. He was consented for the procedure. He stopped blood thinners 2 days ago. PROCEDURE: He was brought to the Operating Suite in the supine position. He was prepped and draped in sterile fashion. IV sedation was given. A single stick using ultrasound was used to access the dominant jugular vein. The wire was then introduced without difficulty with no significant ectopy. The chest site was then prepared. A argelia was made lateral to the wire and undermined to allow for curvature of the catheter. We introduced the dilator. It was then passed over the wire and went into the vein with slight resistance. It caused some additional oozing. Once it was dilated, the trimmed catheter was then placed over the wire, into the chest about 15 cm. The wire was then removed. The catheter was flushed. It was mated to the tunneler and tunneled down to the port site. The initial bend in the catheter did not allow, so I removed it from the chest site, kept it in the vein and the recreated the pocket and re-tunneled it in a just a little different orientation and now the catheter was functioning normally and flushed with saline. We then had fluoroscopy to confirm proper position of the tip and no kinking at the neck. It was then trimmed, mated and then locked to the port. The port was secured medially with a single 2-0 Prolene. It was still functioning normally and was flushed with heparinized saline solution 100:1. Again, the final film confirmed proper position of the tip. The wound was then closed with 2 layers of absorbable suture. The neck had been held with gentle pressure throughout and now there was no additional oozing. It was closed with 4-0 Monocryl and dressings applied. He tolerated the procedure and was taken to Recovery to be discharged. #[id number] cc: Loc Arellano MD MTDD
[2019-06-05 11:28] VITALS: BP 194/87; TEMP 96.4; O2SAT 95
--- NOTE | 2019-06-06 07:15 | RAD ---
EXAM DESCRIPTION: Fluoroscopy Up to 1Hr CLINICAL HISTORY: PORT PLACEMENT FINDINGS/ IMPRESSION: Single intraoperative radiograph right internal jugular port placement. Fluoroscopy time 14.4 seconds Electronically signed by: Haim Overton MD 06/06/2019 7:14 AM [facility]
== END 2019-06-05 11:20 | disposition home or self-care (01) ==
LOC: AMB 05:45
PROVIDERS: ATTEND Surgery
DX: Z45.2 Encounter for adjustment and management of vascular access device (principal); E11.621 Type 2 diabetes mellitus with foot ulcer; L97.409 Non-pressure chronic ulcer of unspecified heel and midfoot with unspecified severity; I10 Essential (primary) hypertension; Z79.4 Long term (current) use of insulin; Z79.01 Long term (current) use of anticoagulants; Z79.899 Other long term (current) drug therapy
CPT/HCPCS: 00532; 36415; 36416; 36558; 76000; 80053; 82948; 85025; C1788; J0690; J1335; J1642; J1815; J2250; J3010; J3490; J7030; J7050; J7120

== ENCOUNTER → 2019-11-17 | Outpatient (CLI) | payer MEDICARE, MEDICAID | LOC: GMAJ 11:27 | PROVIDERS: ATTEND Family Medicine | DX: L97.509 Non-pressure chronic ulcer of other part of unspecified foot with unspecified severity (principal); E11.51 Type 2 diabetes mellitus with diabetic peripheral angiopathy without gangrene ==

== ENCOUNTER 2020-03-09 21:18 | Emergency (ER) | payer MEDICARE, MEDICAID ==
[2020-03-09] MEDS ORDERED: LIDOCAINE 1% W/ EPINEPHRINE 20 ML VIAL INJ ONE (21:25)
--- NOTE | 2020-03-09 21:55 | ED.PDOC ---
History of Present Illness - General Chief Complaint: Skin/Abrasion/Tear Stated Complaint: forehead bleeding Time Seen by Provider: 03/09/20 21:49 Source: patient - History of Present Illness Initial Comments: 70-year-old male who presents to the ED with chief complaint of bleeding from skin lesion on his forehead. Reports that the lesion grew rapidly in less than 1 day about 2 to 3 weeks ago. Reports a small 1 x 1 cm nodular red mass lesion to the center of the forehead, largely unchanged from initial appearance. He reports he has been trying to get into the clinic to have it looked at but havi ng a difficult time given the pandemic. Reports it began intermittently bleeding 2 to 3 days ago, but worsened this evening just prior to arrival. Reports he went to change the dressing and it began bleeding briskly and he has been unable to get it to stop with pressure. Denies any pain, dizziness/lightheadedness, weakness, chest pain, shortness of breath, or other systemic symptoms. He has never had a lesion like this before. He does report he takes a blood thinner but is unsure of the name. PCP is Dr. Arellano. Allergies/Adverse Reactions: Allergies NO KNOWN ALLERGY Allergy (Verified 08/29/18 13:38) Home Medications: Ambulatory Orders Atenolol [Tenormin] 100 mg PO BID 10/29/14 Atorvastatin Calcium [Lipitor] 80 mg PO BEDTIME 10/29/14 Insulin Aspart [Novolog Flexpen] 10 unit SC TID 10/29/14 Insulin Glargine [Lantus Solostar] 30 unit SC BID 10/29/14 Metformin HCl [Metformin Hydrochloride] 500 mg PO TID 08/29/18 Furosemide [Lasix] 20 mg PO DAILY 04/08/19 Review of Systems - Review of Systems Review of Systems: 03/09/20 21:55 as per HPI All other Systems: Reviewed and Negative Past Medical History (General) - Patient Medical History Hx Seizures: No Hx Stroke: No Hx Asthma: No Hx of COPD: No Hx Cardiac Disorders: No Hx Congestive Heart Failure: Yes Hx Pacemaker: No Hx Hypertension: Yes Hx Diabetes: Yes Hx MRSA: No Surgical History: other - Vaccination History Hx Tetanus, Diphtheria Vaccination: No Hx Influenza Vaccination: No Hx Pneumococcal Vaccination: No - Social History Hx Tobacco Use: No Hx Alcohol Use: No Hx Substance Use: No Hx Physical Abuse: No Hx Emotional Abuse: No Family Medical History - Family History Mother Name: Fanny Centeno Living Status: Age at (years of age): 65 Cause of : Cancer Hx Family Asthma: No Hx Family Congestive Heart Failure: No Hx Family Hypertension: Yes Hx Family Stroke: No Hx Cardiac Disease: No Hx Family Diabetes: No Hx Family Cancer: Yes Physical Exam - Physical Exam General Appearance: Alert, Comfortable, No apparent distress Eye Exam: bilateral normal Ears, Nose, Throat: hearing grossly normal, normal ENT inspection, normal pharynx Neck: non-tender, full range of motion, supple, normal inspection Respiratory: lungs clear, normal breath sounds, no respiratory distress, no accessory muscle use Cardiovascular/Chest: normal peripheral pulses, regular rate, rhythm, no edema, no gallop, no JVD, no murmur Peripheral Pulses: radial,right: 2+, radial,left: 2+ Gastrointestinal/Abdominal: non tender, soft Extremity: normal inspection Neurologic: no motor/sensory deficits, alert, normal mood/affect, oriented x 3 Skin Exam: warm/dry, other - Approximately 1 x 1 cm red nodular soft mass protruding from skin of center of forehead, brisk bleeding noted from the base of the lesion. Lesion appears consistent with hemangioma. Progress - Progress Progress: 03/09/20 21:56 Bleeding skin lesion -Suspect benign hemangioma given appearance, which is bleeding briskly in the setting of minor trauma to the area and oral anticoagulants -Patient stable, no evidence of systemic symptoms -Upon patient arrival to ED, excisional biopsy of the lesion was done and sutures were placed with successful hemostasis. We will send the lesion for pathology tissue biopsy. Follow-up results with the patient. If results are benign, no further work-up. If results are concerning/cancerous, he will need to follow-up with his PCP or dermatology. Sutures will need to come out in 5 to 7 days. -DC to home in good condition, return warnings discussed Bacilio Melendrez MD Billing #[id number] Procedures - Additional Procedures Progress: Forehead skin lesion removal procedure: Prior to the start of procedure the patient was consented verbally. A timeout was performed verifying the correct patient and procedure site. The base of the skin lesion was cleansed copiously with Betadine swabs and then injected with 3 cc of 1% lidocaine with epinephrine. Using a 10 blade scalpel the lesion was excised at the base and placed in a specimen cup and sent for tissue pathology. The remaining wound was closed with 3 sutures of 4-0 Prolene in simple interrupted fashion. Good hemostasis was achieved at the end of the procedure. Patient tolerated procedure well and there were no complications. Estimated blood loss was less than 5 mL's. Departure - Departure Clinical Impression: Hemorrhage of skin lesion, Benign skin lesion of forehead Time of Disposition: 21:59 Disposition: Discharge to Home or Self Care Condition: Good Departure Forms: ED Discharge - Pt. Copy, Patient Portal Self Enrollment Instructions: DI for Abrasion, Laceration Repair With Stitches (DC), Skin Lesion Removal (DC) Diet: resume usual diet Activity: increase activity as tolerated Referrals: Loc Arellano MD [Primary Care Provider] - 1-2 Weeks Home Medications: Ambulatory Orders Atenolol [Tenormin] 100 mg PO BID 10/29/14 Atorvastatin Calcium [Lipitor] 80 mg PO BEDTIME 10/29/14 Insulin Aspart [Novolog Flexpen] 10 unit SC TID 10/29/14 Insulin Glargine [Lantus Solostar] 30 unit SC BID 10/29/14 Metformin HCl [Metformin Hydrochloride] 500 mg PO TID 08/29/18 Furosemide [Lasix] 20 mg PO DAILY 04/08/19 Additional Instructions: Wash the area gently with warm soap and water 1-2 times daily and reapply topical antibiotic ointment such as Neosporin and a clean dressing. The sutures will need to come out in 5 to 7 days time. You may return to the ED assistant front office manager for removal. Return to the ED if the area begins bleeding again which is unable to be stopped with prolonged pressure for at least 30 minutes to the area or if you develop any concerning symptoms such as worsening redness, warmth, swelling, or puslike drainage from the area which may indicate infection. Otherwise follow-up with your regular doctor is recommended in the next 1 to 2 weeks for repeat evaluation or sooner as needed.
[2020-03-09 22:29] VITALS: BP 167/74; TEMP 97.2; O2SAT 96
== END 2020-03-09 22:29 | disposition home or self-care (01) ==
LOC: ER 21:18
DX: L98.9 Disorder of the skin and subcutaneous tissue, unspecified (principal); I50.9 Heart failure, unspecified; I11.0 Hypertensive heart disease with heart failure; E11.9 Type 2 diabetes mellitus without complications; Z79.4 Long term (current) use of insulin; Z79.899 Other long term (current) drug therapy

== ENCOUNTER → 2020-03-24 | Outpatient (CLI) | payer MEDICARE, MEDICAID ==
--- NOTE | 2020-03-25 08:07 | CT ---
EXAM DESCRIPTION: Abdoment/Pelvis w/o Contrast CLINICAL HISTORY: 70 years, Male, CHRONIC KIDNEY DISEASE STAGE 4 COMPARISON: None. TECHNIQUE: CT of the abdomen and pelvis is performed without IV or p.o. contrast. Multiplanar reconstructions were obtained. FINDINGS: Partially limited evaluation without intravenous contrast. Small bilateral pleural effusions (slightly more pronounced on the right) with mild bibasilar compressive atelectasis. Prominent mediastinal lymph nodes noted. The liver, spleen, and pancreas are unremarkable. No adrenal nodules. The gallbladder is decompressed. Mild gallbladder wall thickening can be reactive. Mildly atrophic bilateral kidneys (the right kidney measures 6.8 x 4.1 cm, the left kidney measures 8.4 x 4.6 cm) without nephrolithiasis or hydronephrosis. No perinephric fluid collection. Small bilateral renal cysts. The ureters are normal in caliber without obstructing stone. Mild colonic diverticulosis without diverticulitis. No focal bowel wall thickening or bowel obstruction. The appendix is normal. Small volume ascites within the pelvis. Moderate size right direct inguinal hernia contains a portion of the anterior bladder. No bowel involvement. The bladder is otherwise unremarkable. Prominent right inguinal and bilateral iliac and periaortic lymph nodes are noted (measuring up to 1.7 cm within the right inguinal region), nonspecific and can be reactive. Prominent lymph node in mild haziness/stranding to the small bowel mesentery can also be reactive and related to mesenteric panniculitis. Degenerative changes of the spine. No acute osseous abnormality. There is diffuse soft tissue anasarca. IMPRESSION: Partially limited evaluation without intravenous contrast. 1. Small mildly atrophic bilateral kidneys. No nephrolithiasis, hydronephrosis, or perinephric fluid collection. 2. Volume overload state with bilateral pleural effusions and diffuse soft tissue anasarca. 3. Mild lymphadenopathy within the partially visualized mediastinum, retroperitoneum and inguinal regions are nonspecific but favored to be reactive. Follow-up can be obtained for reassessment. 4. Mild mesenteric panniculitis. 5. Moderate size right inguinal hernia containing a portion of the bladder. 6. Mild diverticulosis. This exam was performed according to our departmental dose-optimization program, which includes automated exposure control, adjustment of the mA and/or kV according to patient size and/or use of iterative reconstruction technique. Electronically signed by: Emmanuel Gonzales DO 03/25/2020 8:06 AM CDT
== END ==
LOC: CT 11:47
PROVIDERS: ATTEND Internal Medicine Nephrology
DX: N18.4 Chronic kidney disease, stage 4 (severe) (principal); N26.1 Atrophy of kidney (terminal); K40.90 Unilateral inguinal hernia, without obstruction or gangrene, not specified as recurrent; K57.30 Diverticulosis of large intestine without perforation or abscess without bleeding; E87.70 Fluid overload, unspecified; J90 Pleural effusion, not elsewhere classified; R59.1 Generalized enlarged lymph nodes; K65.4 Sclerosing mesenteritis

== ENCOUNTER 2020-05-11 07:08 | Emergency (ER) | payer MEDICARE, OTHER ==
[2020-05-11 07:20] VITALS: TEMP 97.5
--- NOTE | 2020-05-11 07:49 | RAD ---
EXAM DESCRIPTION: Abdomen Series CLINICAL HISTORY: rt sided chest pain COMPARISON: Chest x-ray August 30, 2018 FINDINGS: AP supine and upright views of the abdomen show a nonspecific, nonobstructive bowel gas pattern with no evidence for free intraperitoneal air. Surgical clips from cholecystectomy are seen. Mildly dilated air-filled loops of small bowel central abdomen are seen.. No significant air-fluid levels are identified. No obvious organomegaly is seen. No abnormal calcifications are seen in the expected location of the renal collecting systems. Single view of the chest shows enlargement of the cardiac silhouette without pulmonary vascular congestion. Right IJ Mediport is seen in place with tip in the distal superior vena cava.. Lungs are normally aerated and clear IMPRESSION: Nonspecific abdominal series. Mildly dilated air-filled loops of small bowel central abdomen are seen. Exam is limited by patient body habitus and imaging technique. Stable mild cardiomegaly. Right IJ Mediport appears in good positioning. Electronically signed by: Jameson Romero MD 05/11/2020 7:48 AM CDT
[2020-05-11] MEDS ORDERED: POTASSIUM CHLORIDE ELIXIR 20 MEQ/15 ML UD PO ONE (08:02)
[2020-05-11] MEDS ORDERED: MAGNESIUM SULFATE PREMIX 4GM 4 GM in PREMIX BAG 1 BAG IVPB ONE (08:02)
[2020-05-11] MEDS ORDERED: CALCIUM GLUCONATE INJ 1 GM in SODIUM CHLORIDE 0.9% 50ML 50 ML IVPB ONE (08:02)
[2020-05-11] MEDS ORDERED: CEFEPIME 1 GM in SODIUM CHLORIDE 0.9% 50ML 50 ML IVPB ONE (10:42)
[2020-05-11] MEDS ORDERED: FLUCONAZOLE 100 MG TAB PO ONE (10:45)
[2020-05-11] MEDS ORDERED: CIPROFLOXACIN 500 MG TAB PO ONE (10:45)
[2020-05-11] MEDS ORDERED: DAPTOMYCIN IVPB SCH (11:00)
[2020-05-11] MEDS ORDERED: SODIUM CHLORIDE 0.9% IVPB SCH (11:00)
--- NOTE | 2020-05-11 11:03 | ED.PDOC ---
History of Present Illness - General Chief Complaint: Chest Pain/MS Stated Complaint: right sided chest pain Time Seen by Provider: 05/11/20 07:23 Source: patient Exam Limitations: no limitations - History of Present Illness Initial Comments: The patient is a 70-year-old male presents emergency room secondary to report of right anterior lower chest pain for the last week to week and a half. It is fairly constant but worse when he twists or turns or takes a deep breath or moves. It is worse with palpation. No shortness of breath or productive cough. No nausea or vomiting. The patient is currently undergoing IV daptomycin infusions daily here at the hospital. He is receiving these for a chronic foot infection with associated ulcer to the right foot. Again no fevers. No sore throat or runny nose. The chest pain is no worse and no better with aerobic activity. No palpable deformity over the area. I see no bruising. No rash. The patient has undergone a fairly aggressive diuresis recently taking 3 diuretics. He has had electrolyte issues in the past and has had to have a placement in the past. No palpitations. No central or left-sided chest pain. No radiation to the arm or jaw. Timing/Duration: 1 week, constant Severity: moderate Improving Factors: immobilization Worsening Factors: movement Associated Symptoms: denies symptoms Allergies/Adverse Reactions: Allergies NO KNOWN ALLERGY Allergy (Verified 08/29/18 13:38) Home Medications: Ambulatory Orders Atenolol [Tenormin] 100 mg PO BID 10/29/14 Atorvastatin Calcium [Lipitor] 80 mg PO BEDTIME 10/29/14 Insulin Aspart [Novolog Flexpen] 10 unit SC TID 10/29/14 Insulin Glargine [Lantus Solostar] 30 unit SC BID 10/29/14 Furosemide [Lasix] 40 mg PO DAILY 04/08/19 Amlodipine Besylate 5 mg PO DAILY 05/11/20 Bumetanide 1 mg PO DAILY 05/11/20 Calcitriol 0.5 mcg PO DAILY 05/11/20 Ciprofloxacin [Cipro] 250 mg PO Q12H #10 tablet 05/11/20 Labetalol HCl [Labetalol Hydrochloride] 200 mg PO BID 05/11/20 Magnesium Oxide 400 mg PO BID #30 cap 05/11/20 Metolazone 10 mg PO DAILY 05/11/20 Potassium Chloride [Potassium Chloride ER] 10 meq PO DAILY 05/11/20 Potassium Chloride [Potassium Chloride ER] 20 meq PO DAILY #30 tab 05/11/20 Pregabalin [Lyrica] 100 mg PO BID 05/11/20 Rivaroxaban [Xarelto] 20 mg PO DAILY 05/11/20 levoFLOXacin [Levaquin] 500 mg PO DAILY 05/11/20 Review of Systems - Review of Systems Constitutional: States: no symptoms reported EENTM: States: no symptoms reported Respiratory: States: no symptoms reported Cardiology: States: chest pain Gastrointestinal/Abdominal: States: no symptoms reported Genitourinary: States: no symptoms reported Musculoskeletal: States: no symptoms reported Skin: States: see HPI Neurological: States: see HPI Endocrine: States: no symptoms reported All other Systems: No Change from Baseline Past Medical History (General) - Patient Medical History Hx Seizures: No Hx Stroke: No Hx Asthma: No Hx of COPD: No Hx Cardiac Disorders: No Hx Congestive Heart Failure: No Hx Pacemaker: No Hx Hypertension: Yes Hx Diabetes: Yes Hx MRSA: No - Vaccination History Hx Tetanus, Diphtheria Vaccination: No Hx Influenza Vaccination: Yes - 2019 Hx Pneumococcal Vaccination: Yes - Social History Hx Tobacco Use: No Hx Alcohol Use: No Hx Substance Use: No Hx Physical Abuse: No Hx Emotional Abuse: No Family Medical History - Family History Mother Name: Fanny Centeno Living Status: Age at (years of age): 65 Cause of : Cancer Hx Family Asthma: No Hx Family Congestive Heart Failure: No Hx Family Hypertension: Yes Hx Family Stroke: No Hx Cardiac Disease: No Hx Family Diabetes: No Hx Family Cancer: Yes Physical Exam - Physical Exam General Appearance: Alert, Comfortable, No apparent distress Eye Exam: bilateral normal Ears, Nose, Throat: hearing grossly normal, normal pharynx Neck: full range of motion, supple Respiratory: lungs clear, normal breath sounds, no respiratory distress, no accessory muscle use, other - See history of present illness Cardiovascular/Chest: normal peripheral pulses, regular rate, rhythm, other - Chronic +1 edema Peripheral Pulses: radial,right: 2+, radial,left: 2+ Gastrointestinal/Abdominal: non tender, soft Rectal Exam: deferred Back Exam: no vertebral tenderness Extremity: normal range of motion, no calf tenderness, other - Chronic +1 edema 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 He has a 1 inch ulcer to the plantar aspect of his distal right foot. He has chronic amputation sites as well. No significant drainage at this point. Comments: Vital Signs - 24 hr 05/11/20 05/11/20 05/11/20 07:15 07:35 07:36 Temperature 97.5 F L Pulse Rate 75 Pulse Rate [ 81 75 Left Brachial] Respiratory 20 20 Rate Blood Pressure 175/86 [Left Arm] O2 Sat by Pulse 98 Oximetry 05/11/20 05/11/20 05/11/20 08:08 09:22 10:00 Temperature Pulse Rate Pulse Rate [ 69 72 67 Left Brachial] Respiratory 16 16 16 Rate Blood Pressure 166/74 165/75 180/75 [Left Arm] O2 Sat by Pulse 98 98 98 Oximetry Progress - Progress Progress: 05/11/20 11:06 The patient is a 70-year-old male presented emergency room with right lower anterior lateral chest discomfort for the last week. I believe this is more likely muscle spasm associated with electrolyte problems. He has a low potassium, low calcium and low magnesium. He has received supplemental doses of all of this here today. The patient does have a chronically low albumin, so the corrected calcium is not too far off. I believe it can be held in check with his current medications if we can keep the magnesium and potassium corrected. To that end, the patient is going to be increased on his potassium dosage and started on a magnesium supplement. Constipation may also be giving some right upper quadrant discomfort so he will receive 1 dose of milk of magnesia here today before he goes home. The patient was scheduled to receive daptomycin for the chronic foot infection today up here at the hospital anyway, so he will receive that before he is discharged. The patient does appear to have a small urinary tract infection. The urine will be cultured. He is going to be placed on 5 days of low-dose oral ciprofloxacin. He does need to have repeat blood work drawn in about a week to make sure electrolytes are remaining appropriate. He does also need to have a repeat urinalysis for test of cure around that time. He is to follow back with his primary care doctor for these. ER warnings are given for any obvious worsening. I would also recommend that he hold on the diuretics for at least 1 day. Keep follow-up with nephrology. [email or web address] - Results/Orders Results/Orders: Telemetry shows normal sinus rhythm. Acute abdominal series shows no acute pathology. Rapid coronavirus test is negative. EKG shows normal sinus rhythm at 78 bpm. There is a first-degree AV block. Borderline prolonged QT interval. Normal axis. Normal R wave progression. No ST segment or T wave changes indicative of acute ischemia. Laboratory Results - last 24 hr 05/11/20 05/11/20 05/11/20 07:20 07:20 07:20 WBC 6.7 RBC 4.40 L Hgb 12.7 L Hct 36.8 L MCV 83.6 MCH 28.8 MCHC 34.5 RDW 14.8 H Plt Count 224 MPV 8.6 Absolute Neuts (auto) 3.40 Absolute Lymphs (auto) 2.50 Absolute Monos (auto) 0.50 Absolute Eos (auto) 0.30 Absolute Basos (auto) 0.10 Neutrophils % 50.7 Lymphocytes % 36.7 Monocytes % 6.7 Eosinophils % 5.1 H Basophils % 0.8 PT 10.1 INR 1.02 PTT (SP) 28.8 Sodium 140 Potassium 3.0 L Chloride 100 L Carbon Dioxide 24 Anion Gap 19.0 H BUN 55 H Creatinine 3.76 H BUN/Creatinine Ratio 14.6 Random Glucose 129 H Serum Osmolality 296.2 H Calcium 6.7 L* Magnesium 1.2 L Total Bilirubin 0.5 AST 21 ALT 14 Alkaline Phosphatase 86 Creatine Kinase 460 H* CK-MB (CK-2) 12.4 H* CK-MB (CK-2) % 2.70 Troponin I 0.03 B-Natriuretic Peptide 410.0 H* Serum Total Protein 6.8 Albumin 1.8 L Globulin 5.0 H Albumin/Globulin Ratio 0.4 L Amylase 108 H Lipase 68 H Urine Color Urine Appearance Urine pH Ur Specific Harold Urine Protein Urine Glucose (UA) Urine Ketones Urine Blood Urine Nitrite Urine Bilirubin Urine Urobilinogen Ur Leukocyte Esterase Urine RBC Urine WBC Ur Epithelial Cells Amorphous Sediment Urine Bacteria Urine Mucus 05/11/20 10:16 WBC RBC Hgb Hct MCV MCH MCHC RDW Plt Count MPV Absolute Neuts (auto) Absolute Lymphs (auto) Absolute Monos (auto) Absolute Eos (auto) Absolute Basos (auto) Neutrophils % Lymphocytes % Monocytes % Eosinophils % Basophils % PT INR PTT (SP) Sodium Potassium Chloride Carbon Dioxide Anion Gap BUN Creatinine BUN/Creatinine Ratio Random Glucose Serum Osmolality Calcium Magnesium Total Bilirubin AST ALT Alkaline Phosphatase Creatine Kinase CK-MB (CK-2) CK-MB (CK-2) % Troponin I B-Natriuretic Peptide Serum Total Protein Albumin Globulin Albumin/Globulin Ratio Amylase Lipase Urine Color Yellow Urine Appearance Clear Urine pH 6.5 Ur Specific Harold 1.025 Urine Protein >=300 H Urine Glucose (UA) 500 H Urine Ketones Trace Urine Blood Large H Urine Nitrite Negative Urine Bilirubin Negative Urine Urobilinogen 0.2 Ur Leukocyte Esterase Negative Urine RBC 20-30 H Urine WBC 10-20 H Ur Epithelial Cells 10-20 Amorphous Sediment 1+ Urine Bacteria 1+ Urine Mucus Trace Departure - Departure Clinical Impression: Cystitis, Hypokalemia, Hypomagnesemia, Hypocalcemia, Chronic renal insufficiency, stage IV (severe), Atypical chest pain Constipation Qualifiers: Constipation type: drug induced constipation Qualified Code(s): K59.03 - Drug induced constipation Disposition: Discharge to Home or Self Care Departure Forms: ED Discharge - Pt. Copy, Patient Portal Self Enrollment Instructions: DI for Chest Pain, Acute Cystitis (DC), Hypokalemia (DC) Diet: diabetic diet Activity: increase activity as tolerated Referrals: Loc Arellano MD [Primary Care Provider] - 1-2 Weeks Prescriptions: Ciprofloxacin [Cipro] 250 mg PO Q12H #10 tablet Magnesium Oxide 400 mg PO BID #30 cap Potassium Chloride [Potassium Chloride ER] 20 meq PO DAILY #30 tab Home Medications: Ambulatory Orders Atenolol [Tenormin] 100 mg PO BID 10/29/14 Atorvastatin Calcium [Lipitor] 80 mg PO BEDTIME 10/29/14 Insulin Aspart [Novolog Flexpen] 10 unit SC TID 10/29/14 Insulin Glargine [Lantus Solostar] 30 unit SC BID 10/29/14 Furosemide [Lasix] 40 mg PO DAILY 04/08/19 Amlodipine Besylate 5 mg PO DAILY 05/11/20 Bumetanide 1 mg PO DAILY 05/11/20 Calcitriol 0.5 mcg PO DAILY 05/11/20 Ciprofloxacin [Cipro] 250 mg PO Q12H #10 tablet 05/11/20 Labetalol HCl [Labetalol Hydrochloride] 200 mg PO BID 05/11/20 Magnesium Oxide 400 mg PO BID #30 cap 05/11/20 Metolazone 10 mg PO DAILY 05/11/20 Potassium Chloride [Potassium Chloride ER] 10 meq PO DAILY 05/11/20 Potassium Chloride [Potassium Chloride ER] 20 meq PO DAILY #30 tab 05/11/20 Pregabalin [Lyrica] 100 mg PO BID 05/11/20 Rivaroxaban [Xarelto] 20 mg PO DAILY 05/11/20 levoFLOXacin [Levaquin] 500 mg PO DAILY 05/11/20 Additional Instructions: The patient is a 70-year-old male presented emergency room with right lower anterior lateral chest discomfort for the last week. I believe this is more likely muscle spasm associated with electrolyte problems. He has a low potassium, low calcium and low magnesium. He has received supplemental doses of all of this here today. The patient does have a chronically low albumin, so the corrected calcium is not too far off. I believe it can be held in check with his current medications if we can keep the magnesium and potassium corrected. To that end, the patient is going to be increased on his potassium dosage and started on a magnesium supplement. Constipation may also be giving some right upper quadrant discomfort so he will receive 1 dose of milk of magnesia here today before he goes home. The patient was scheduled to receive daptomycin for the chronic foot infection today up here at the hospital anyway, so he will receive that before he is discharged. The patient does appear to have a small urinary tract infection. The urine will be cultured. He is going to be placed on 5 days of low-dose oral ciprofloxacin. He does need to have repeat blood work drawn in about a week to make sure electrolytes are remaining appropriate. He does also need to have a repeat urinalysis for test of cure around that time. He is to follow back with his primary care doctor for these. ER warnings are given for any obvious worsening. I would also recommend that he hold on the diuretics for at least 1 day. Keep follow-up with nephrology.
[2020-05-11] MEDS ORDERED: HEPARIN SODIUM 100 U/ML 5 ML SYG IV ONE (11:49)
[2020-05-11] MEDS ORDERED: MAGNESIUM HYDROXIDE 30 ML UD PO ONE (11:52)
[2020-05-11 12:25] VITALS: BP 185/84; O2SAT 99
== END 2020-05-11 12:25 | disposition home or self-care (01) ==
LOC: ER 07:08
DX: R07.89 Other chest pain (principal); K59.03 Drug induced constipation; N30.00 Acute cystitis without hematuria; E87.6 Hypokalemia; E83.42 Hypomagnesemia; E83.51 Hypocalcemia; E11.22 Type 2 diabetes mellitus with diabetic chronic kidney disease; I12.9 Hypertensive chronic kidney disease with stage 1 through stage 4 chronic kidney disease, or unspecified chronic kidney disease; N18.4 Chronic kidney disease, stage 4 (severe); I44.0 Atrioventricular block, first degree; Z20.828 Contact with and (suspected) exposure to other viral communicable diseases; Z79.4 Long term (current) use of insulin; Z79.899 Other long term (current) drug therapy
CPT/HCPCS: 36415; 74019; 80053; 81001; 82150; 82550; 82553; 83690; 83735; 83880; 84484; 85025; 85610; 85730; 87086; 87635; 93005; A4216; J0692; J0878; J1642; J3475; J7050

== ENCOUNTER 2020-07-09 14:16 | Emergency (ER) | payer MEDICARE, OTHER ==
--- NOTE | 2020-07-09 14:43 | ED.PDOC ---
History of Present Illness - General Chief Complaint: General Stated Complaint: weakness,falls Time Seen by Provider: 07/09/20 14:22 Source: patient, RN notes reviewed, Vital Signs reviewed, EMS notes reviewed, EMS, old records Exam Limitations: no limitations - History of Present Illness Initial Comments: 70 yo M with CKD comes in with the c/c of gradual worsening generalized weakness. Patient lives at home, family visiting for [place], patient states he felt weak in the knees and slipped to the ground. Family wanted patient evaluated. Denies chest pain, but has been having worsening shortness of breath for the past week. Has chronic anasraca. Did not hit head, no LOC. no syncope. no abdominal pain n/v/d. no sore throat or fevers. He follows Dr. Quinn, has appointment sundayjul 12. 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 of note patient on chronic IV antibiotics for chronic diabetic foot ulcer, per family has missed a few doses Allergies/Adverse Reactions: Allergies NO KNOWN ALLERGY Allergy (Verified 08/29/18 13:38) Home Medications: Ambulatory Orders Atenolol [Tenormin] 100 mg PO BID 10/29/14 Atorvastatin Calcium [Lipitor] 80 mg PO BEDTIME 10/29/14 Insulin Aspart [Novolog Flexpen] 10 unit SC TID 10/29/14 Insulin Glargine [Lantus Solostar] 30 unit SC BID 10/29/14 Furosemide [Lasix] 40 mg PO DAILY 04/08/19 Amlodipine Besylate 5 mg PO DAILY 05/11/20 Bumetanide 1 mg PO DAILY 05/11/20 Calcitriol 0.5 mcg PO DAILY 05/11/20 Ciprofloxacin [Cipro] 250 mg PO Q12H #10 tablet 05/11/20 Labetalol HCl [Labetalol Hydrochloride] 200 mg PO BID 05/11/20 Magnesium Oxide 400 mg PO BID #30 cap 05/11/20 Metolazone 10 mg PO DAILY 05/11/20 Potassium Chloride [Potassium Chloride ER] 10 meq PO DAILY 05/11/20 Potassium Chloride [Potassium Chloride ER] 20 meq PO DAILY #30 tab 05/11/20 Pregabalin [Lyrica] 100 mg PO BID 05/11/20 Rivaroxaban [Xarelto] 20 mg PO DAILY 05/11/20 levoFLOXacin [Levaquin] 500 mg PO DAILY 05/11/20 Review of Systems - Review of Systems Constitutional: States: malaise, weakness. Denies: fever EENTM: Denies: blurred vision, throat pain Respiratory: States: short of breath. Denies: cough, orthopnea Cardiology: States: edema. Denies: chest pain, palpitations, syncope Gastrointestinal/Abdominal: Denies: abdominal pain, diarrhea, nausea, vomiting Genitourinary: Denies: frequency Musculoskeletal: Denies: back pain, joint swelling, muscle pain Skin: States: rash - chronic PVD changes in legs, chronic foot ulcer on daptomycin Neurological: Denies: headache, numbness, paresthesia, seizure Endocrine: Denies: unexplained weight gain, unexplained weight loss Hematologic/Lymphatic: Denies: blood clots, easy bleeding, easy bruising Past Medical History (General) - Patient Medical History Hx Seizures: No Hx Stroke: No Hx Asthma: No Hx of COPD: No Hx Cardiac Disorders: No Hx Congestive Heart Failure: No Hx Pacemaker: No Hx Hypertension: Yes Hx Thyroid Disease: No Hx Diabetes: Yes Hx Renal Disease: Yes Hx MRSA: No - Vaccination History Hx Tetanus, Diphtheria Vaccination: No Hx Influenza Vaccination: No Hx Pneumococcal Vaccination: Yes - Social History Hx Tobacco Use: No Hx Alcohol Use: No Hx Substance Use: No Hx Physical Abuse: No Hx Emotional Abuse: No Family Medical History - Family History Mother Name: Fanny Centeno Living Status: Age at (years of age): 65 Cause of : Cancer Hx Family Asthma: No Hx Family Congestive Heart Failure: No Hx Family Hypertension: Yes Hx Family Stroke: No Hx Cardiac Disease: No Hx Family Diabetes: No Hx Family Cancer: Yes Physical Exam - Physical Exam General Appearance: Alert, Comfortable, No apparent distress, Well Developed, Well Groomed, Well Hydrated, Well Nourished Eye Exam: bilateral normal, bilateral other - bilateral mild periorbital edema Ears, Nose, Throat: normal ENT inspection Neck: non-tender, full range of motion, supple, normal inspection Respiratory: chest non-tender, lungs clear, normal breath sounds, no respiratory distress, no accessory muscle use Cardiovascular/Chest: normal peripheral pulses, regular rate, rhythm, no JVD, other - 3+ pitting edema in all extremities. Peripheral Pulses: radial,right: 2+, radial,left: 2+ Gastrointestinal/Abdominal: normal bowel sounds, non tender, soft, no pulsatile mass Rectal Exam: deferred Back Exam: normal inspection, no CVA tenderness, no vertebral tenderness Extremity: non-tender, other - Chronic dry scaling skin, PVD hyeprpigmented changes. 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 psi score 140 Patient blood work shows significant metabolic acidosis, lactic acid wnl. Most likely secondary to uremia. Patient does show t wave inversion in v5-v6 and prolong qt which is most likely secondary to his hypocalcemia. will give 2 gram Jaspal gluconate through his port. Elevated trop most likely due to worsening kidney failure due to no chest pain, however, could be nstemi will trend troponin and address as needed. Patient placed on 2 L NC saturating 96%. Will hold off on azithromycin for pneumonia due to prolong qt. Will give ceftriaxone and doxy. 07/09/20 17:01 07/09/20 17:11 The data reviewed when caring for this patient included: nurse notes, prior records, etc. The history and assessments from nurses notes were reviewed and considered, and the patient's home medication list was also reviewed and considered. My assessment and the results of testing completed here in the ED were discussed with the patient/family. All questions were answered, and they express understanding of my assessment and the plan. patient was transferred to [place] in stable condition. Ara Sandoval DO #[id number] - Results/Orders Results/Orders: 07/09/20 14:32 URINALYSIS Stat 07/09/20 15:30 EKG STAT 07/09/20 15:50 BLOOD CULTURE Stat 07/09/20 17:01 Doxycycline Hyclate IV [Vibramycin IV] 100 mg Sodium Chloride 0.9% 250Ml [NS 250ml] 250 ml IVPB ONCE Laboratory Results WBC 5.9 K/mm3 (4.8-10.8) 07/09/20 14:40 RBC 3.61 M/mm3 (4.70-6.10) L 07/09/20 14:40 Hgb 10.0 gm/dL (14.0-18.0) L 07/09/20 14:40 Hct 30.4 % (42.0-52.0) L 07/09/20 14:40 MCV 84.3 fl (80.0-94.0) 07/09/20 14:40 MCH 27.8 pg (27.0-31.0) 07/09/20 14:40 MCHC 33.0 g/dL (33.0-37.0) 07/09/20 14:40 RDW 18.3 % (11.5-14.5) H 07/09/20 14:40 Plt Count 347 K/mm3 (130-400) 07/09/20 14:40 MPV 7.6 fl (7.40-10.4) 07/09/20 14:40 Absolute Neuts (auto) 3.90 K/uL (1.8-6.8) 07/09/20 14:40 Absolute Lymphs (auto) 1.40 K/uL (1.0-3.4) 07/09/20 14:40 Absolute Monos (auto) 0.30 K/uL (0.2-0.8) 07/09/20 14:40 Absolute Eos (auto) 0.20 K/uL (0.0-0.4) 07/09/20 14:40 Absolute Basos (auto) 0.10 K/uL (0.0-0.1) 07/09/20 14:40 Neutrophils % 66.0 % (42.0-78.0) 07/09/20 14:40 Lymphocytes % 23.2 % (20.0-50.0) 07/09/20 14:40 Monocytes % 5.9 % (2.0-9.0) 07/09/20 14:40 Eosinophils % 3.2 % (1.0-5.0) 07/09/20 14:40 Basophils % 1.7 % (0.0-2.0) 07/09/20 14:40 PT 10.3 SECONDS (9.0-10.9) 07/09/20 14:40 INR 1.04 (0.9-1.15) 07/09/20 14:40 PTT (SP) 30.5 SECONDS (21.8-31.6) 07/09/20 14:40 pCO2 39 mmHg (35-48) 07/09/20 15:01 pO2 85 mmHg (83-108) 07/09/20 15:01 HCO3 12.9 mmol/L 07/09/20 15:01 ABG pH 7.124 (7.35-7.45) L* 07/09/20 15:01 ABG O2 Saturation 95.3 % (95.0-99.0) 07/09/20 15:01 ABG Base Excess -15.4 mmol/L 07/09/20 15:01 ABG Deoxyhemoglobin 4.6 % (0.0-5.0) 07/09/20 15:01 Oxyhemoglobin % 93.4 % (94.0-98.0) L 07/09/20 15:01 Carboxyhemoglobin % 0.8 % (0.5-1.5) 07/09/20 15:01 Methemoglobin % Sat 1.2 % (0.0-1.5) 07/09/20 15:01 Calc Total Hemoglobin 10.0 g/dL (13.5-17.5) L 07/09/20 15:01 Sodium 139 mmol/L (135-145) 07/09/20 14:40 Potassium 3.9 mmol/L (3.6-5.0) 07/09/20 14:40 Chloride 112 mmol/L (101-111) H 07/09/20 14:40 Carbon Dioxide 13 mmol/L (21-31) L* 07/09/20 14:40 Anion Gap 17.9 (12-18) 07/09/20 14:40 BUN 52 mg/dL (7-18) H 07/09/20 14:40 Creatinine 6.74 mg/dL (0.6-1.3) H* 07/09/20 14:40 BUN/Creatinine Ratio 7.7 (10-20) L 07/09/20 14:40 Random Glucose 88 mg/dL (70-105) 07/09/20 14:40 Serum Osmolality 291.0 mOsm/L (275-295) 07/09/20 14:40 Lactic Acid 0.6 mmol/L (0.5-2.2) 07/09/20 15:50 Calcium 5.5 mg/dL (8.4-10.2) L* 07/09/20 14:40 Total Bilirubin 0.2 mg/dL (0.2-1.0) 07/09/20 14:40 AST 16 IU/L (10-42) 07/09/20 14:40 ALT 14 IU/L (10-60) 07/09/20 14:40 Alkaline Phosphatase 89 IU/L (42-121) 07/09/20 14:40 Troponin I 0.08 ng/mL (0.01-0.05) H* 07/09/20 14:40 B-Natriuretic Peptide 526.0 pg/ml (0-100) H* 07/09/20 14:40 Serum Total Protein 5.5 gm/dL (6.4-8.2) L 07/09/20 14:40 Albumin 1.5 g/dl (3.2-5.5) L 07/09/20 14:40 Globulin 4.0 gm/dL (2.3-3.5) H 07/09/20 14:40 Albumin/Globulin Ratio 0.4 (1.1-1.9) L 07/09/20 14:40 TSH 15.51 uIU/mL (0.34-5.60) H 07/09/20 14:40 Thyroxine (T4) 7.04 ug/dL (6.09-12.23) 07/09/20 14:40 - EKG/XRAY/CT EKG: Sinus - hr 70 Comments: prolong qt. t wave inversion in v5-v6. no stemi. XRAY: chest - pulmonary infiltrates, effusions bilaterally Departure - Departure Clinical Impression: Pleural effusion, Chronic renal insufficiency, stage V, Hypocalcemia, Hypoxia, Metabolic acidosis Pneumonia Qualifiers: Pneumonia type: due to unspecified organism Laterality: bilateral Lung location: unspecified part of lung Qualified Code(s): J18.9 - Pneumonia, unspecified organism Time of Disposition: 17:27 Disposition: Transfer to Hospital Departure Forms: ED Discharge - Pt. Copy, Patient Portal Self Enrollment Referrals: Loc Arellano MD [Primary Care Provider] - 1-5 Days Home Medications: Ambulatory Orders Atenolol [Tenormin] 100 mg PO BID 10/29/14 Atorvastatin Calcium [Lipitor] 80 mg PO BEDTIME 10/29/14 Insulin Aspart [Novolog Flexpen] 10 unit SC TID 10/29/14 Insulin Glargine [Lantus Solostar] 30 unit SC BID 10/29/14 Furosemide [Lasix] 40 mg PO DAILY 04/08/19 Amlodipine Besylate 5 mg PO DAILY 05/11/20 Bumetanide 1 mg PO DAILY 05/11/20 Calcitriol 0.5 mcg PO DAILY 05/11/20 Ciprofloxacin [Cipro] 250 mg PO Q12H #10 tablet 05/11/20 Labetalol HCl [Labetalol Hydrochloride] 200 mg PO BID 05/11/20 Magnesium Oxide 400 mg PO BID #30 cap 05/11/20 Metolazone 10 mg PO DAILY 05/11/20 Potassium Chloride [Potassium Chloride ER] 10 meq PO DAILY 05/11/20 Potassium Chloride [Potassium Chloride ER] 20 meq PO DAILY #30 tab 05/11/20 Pregabalin [Lyrica] 100 mg PO BID 05/11/20 Rivaroxaban [Xarelto] 20 mg PO DAILY 05/11/20 levoFLOXacin [Levaquin] 500 mg PO DAILY 05/11/20 Transfer to Outside Facility - Transfer Information Decision to Transfer Date: 07/09/20 Decision to Transfer Time: 14:58 Reason for Transfer: specialized care not available Accepting Facility: [facility]
[2020-07-09] MEDS ORDERED: CALCIUM GLUCONATE INJ 2 GM in SODIUM CHLORIDE 0.9% 100ML 100 ML IVPB ONE (15:26)
[2020-07-09] MEDS ORDERED: SODIUM CHLORIDE 0.9% 100ML 100 ML IVPB ONE (15:31)
--- NOTE | 2020-07-09 15:31 | RAD ---
EXAM DESCRIPTION: XR Chest, one view CLINICAL HISTORY: short of breath. COMPARISON: 08/30/2018 FINDINGS: Right IJ Port-A-Cath is noted. The heart is normal in size. The pulmonary vascularity is normal. Bilateral basilar areas of infiltrates/atelectasis are noted. Subpulmonic pleural effusion is seen on the right. Moderate left pleural effusion is probably present. No pneumothorax or pleural effusion is seen. The osseous structures appear unremarkable. IMPRESSION: Bibasilar infiltrates and effusions. Electronically signed by: Janna Ragland MD 07/09/2020 3:29 PM [facility]
[2020-07-09] MEDS ORDERED: cefTRIAXone SODIUM 1 GM in SODIUM CHL 0.9% 50ML MIN-BAG+ 50 ML IVPB ONE (16:31)
[2020-07-09] MEDS ORDERED: DOXYCYCLINE HYCLATE IV 100 MG in SODIUM CHLORIDE 0.9% 250ML 250 ML IVPB ONE (17:01)
[2020-07-09] MEDS ORDERED: SODIUM CHLORIDE 0.9% 50 ML VIAL ONE (17:27)
[2020-07-09 17:44] VITALS: BP 146/94; TEMP 97; O2SAT 98
== END 2020-07-09 17:43 | disposition short-term general hospital (02) ==
LOC: ER 14:16
DX: J18.9 Pneumonia, unspecified organism (principal); N18.4 Chronic kidney disease, stage 4 (severe); E83.51 Hypocalcemia; R09.02 Hypoxemia; E87.2 Acidosis; E11.22 Type 2 diabetes mellitus with diabetic chronic kidney disease; E11.621 Type 2 diabetes mellitus with foot ulcer; I45.81 Long QT syndrome; Z79.2 Long term (current) use of antibiotics; Z79.899 Other long term (current) drug therapy; Z79.4 Long term (current) use of insulin; Z20.828 Contact with and (suspected) exposure to other viral communicable diseases
CPT/HCPCS: 36415; 36600; 71045; 80053; 82803; 82805; 83605; 83880; 84436; 84443; 84484; 85025; 85610; 85730; 87040; 87635; 93005; 94660; A4216; J0696; J7050